=== PATIENT | female | born 1990 | race Caucasian/White ===

== ENCOUNTER 2024-02-13 02:39 | Inpatient (IN) | payer OTHER, SELFPAY ==
[2024-02-12 23:09] VITALS: BP 141/80
[2024-02-12 23:35] VITALS: BMI 38.5
--- NOTE | 2024-02-12 23:58 | ED.GENMED ---
History of Present Illness
General
Chief Complaint: Abdominal Pain
Source: patient
Exam Limitations: none
Time Seen by Provider: 02/12/24 23:34
Travel History
Have you had any contact with someone who has COVID-19?: No
Do you have any symptoms of coronavirus? Fever > 100 degrees, chills, cough, shortness of breath, sore throat, loss of taste or smell, muscle aches, or headache?: No
History of Present Illness
History of Present Illness:
This is a 34 year old female that comes in with c/o abd pain. State that before she had her gallbladder removed she would get abd spasm. States that recently she has had three episodes of upper abd spasm. States that this one tonight went on for 1
hour and its like she is having labor pain. States that there is a tightening. States that she thought she was going to pass out due to the pain. States that she does have an appointment with her GI specialist this week. States that the pain has
continued. States that she also feels SOB with the pain. States that she is nauseated and vomited. Denies any fever, chills, chest pain, diarrhea, headache dizziness, urinary burning.
Past History
Past History
ED Past Medical History: None; Negative Asthma, HTN, Hypercholesterolemia or NIDDM
ED Past Surgical History: Cholecystectomy and Other (Gastric sleeve)
Social History
Tobacco: Vaping (Former Cig smoker but now Vaps)
Alcohol: Occasional
Personal: Single
Living: alone
Review of Systems
Review of Systems
All Other Systems: ROS reviewed and negative except as documented in HPI and ROS
Constitutional: Reports no symptoms; Denies fever or chills
EENT: Reports no symptoms
Respiratory: Reports trouble breathing (with the pain); Denies cough
Cardiac: Reports no symptoms; Denies chest pain
ABD/GI: Reports abdominal pain, nausea and vomiting; Denies diarrhea
Musculoskeletal: Reports no symptoms
Skin: Reports no symptoms
Neurological: Reports no symptoms; Denies dizzy or headache
Psychiatric: Reports no symptoms
Phy Exam
General Physical Exam
General Presentation: mild distress
General age: appears stated age
General Skin: warm and dry
General Habitus: obese
General Mental: alert
General Hydration: appears well hydrated
ENT Exam
ENT Exam: TM's normal, pharynx normal and neck supple
Eye Exam
Eye Exam: EOMI
Cardiovascular Exam
Cardiovascular Exam: regular rate/rhythm, no edema, no murmur and normal peripheral pulses
Pulmonary Exam
Pulmonary Exam: lungs clear, no respiratory distress, no rales, chest non tender, no crackles, no rhonchi, no wheezing and no cough
Gastrointestinal Exam
Gastrointestinal Exam: normal bowel sounds, soft, no organomegaly, no pulsatile mass, non distended and tender (Epigastric tenderness with palpation)
Musculoskeletal Exam
Musculoskeletal Exam: full ROM and no edema
Skin Exam
Skin Exam: normal color, warm/dry, no rash and no petechia
Course
Orders/Labs/Results
Orders:
Orders
02/12/24 23:57
IV Insert/Care/Rem.- Treatment PRN
Complete Blood Count/With Diff Urgent
Comprehensive Metabolic Panel Urgent
Lipase Urgent
0.9% Sodium Chloride 1000 ml [Nss] 1,000 ml IV BOLUS
Ondansetron Injectable [Zofran] 4 mg IV NOW STA
02/13/24 00:00
CT Abd/Pel (IV only)-DH only Urgent
Reason For Exam: Upper abd pain and spasm.
02/13/24 00:19
HCG, Serum Qualitative Screen Urgent
Test Result ONCE
02/13/24 02:05
Lactic Acid Urgent
Abnormal Lab Results
02/13/24
00:19
WBC 17.3 H 10^3/uL
(4.8-10.8)
MCH 26.1 L pg
(27.0-31.0)
MCHC 31.7 L g/dL
(33.0-37.0)
MPV 12.3 H fL
(7.4-10.4)
Abs Immat Gran (auto) 0.3 H 10^3/uL
(0-0.05)
Absolute Neuts (auto) 13.9 H 10^3/uL
(1.4-6.5)
Absolute Monos (auto) 1.2 H 10^3/uL
(0.1-0.6)
Immature Gran % 1.7 H %
(0-0.5)
Neutrophils % 80.2 H %
(42.2-75.2)
Lymphocytes % 10.3 L %
(20.5-51.1)
Glucose 106 H mg/dl
(70-99)
AST 180 H U/L
(14-36)
ALT 77 H U/L
(0-35)
Lipase > 4000 H* U/L
(23-300)
02/13/24 00:19
02/13/24 00:19
Leukocytosis, Glucose nonfasting. AST/ALT elevation. Lipase >4000, HCG negative.
Vital Signs
Initial and Last Documented VS:
Initial Vital Signs
Temp Pulse Resp BP Pulse Ox
98.9 F 80 18 141/80 100
02/12/24 23:09 02/12/24 23:09 02/12/24 23:09 02/12/24 23:09 02/12/24 23:09
Last Documented Vital Signs
Temp Pulse Resp BP Pulse Ox
98.9 F 78 18 115/53 99
02/12/24 23:09 02/13/24 00:00 02/13/24 00:00 02/13/24 01:00 02/13/24 01:16
MDM/Problems Addressed
Differential Diagnosis Includes:
Gastroporesis, Stomach spasm
MDM/Problems Addressed:
This is a 34 year old female that comes in with c/o spasm in the upper abd. States that this happened before she had her gallbladder out and now it has started again and this is the third episode. States that the pain is so bad that she feels like
she is going to pass out. States that it is like contractions and a Tightening.
Will check labs and get CT scan
Back into see patient. Explained that she has Pancreatitis and that her Liver enzymes are elevated. Explained that she will be admitted and further testing will be done tomorrow. Hospitalist notified.
Chronic conditions affecting care: Previous abdomnial surgery
Acute Exacerbation and/or Progression of Chronic Illness: Previous abdomnial surgery
*Radiology
Radiology exam reviewed: radiology read reviewed (CT night hawk- NO acute intra-abdominal pathology. No signs of acute pancreatitis. Previous cholecystectomy. No significant ductal dilation. NO acute bowel findings. Normal appendix. Post sleeve
gastrectomy anatomy. No evidence for complication. 2,7cm probable right ovarian cyst. No appreciable free) and other (C cont- no appreciable free fluid. )
*Pulse Oximetry
Patient hypoxic: no
*EKG
Interpreted by ED Provider?: NA
Rate: EKG- N/A
*Critical Care Note
Total Time (30-74mins, 75-104mins- exclusive of procedures): Not Applicable
ED Attending Note
-
Portions of this chart may have been created with voice recognition software.� Occasional wrong word or��sound alike� substitutions may have occurred due to the inherent limitations of voice recognition software.
Discharge Plan
Departure
Patient Disposition: Admit
Date of Disposition: 02/13/24
Time of Disposition: 01:38
Admit to: Med/Surg
Presentation/result/management discussed w/ accepting MD/DO: Hospitalist
Patient with high blood pressure during this ER visit?: No
Condition: Good
Covid-19: Not Applicable
Discharge Problem:
Acute pancreatitis, Elevated liver enzymes
Prescriptions:
No Action
fluoxetine 40 mg Capsule
40 mg PO DAILY
alprazolam 1 mg Tablet
1 mg PO HS
Referrals:
PRIVATE,PHYSICIAN [Family Provider] -
Interventions
Interventions:
*Risk Screen - Suicide Last Done: 02/12/24 23:09
*General Assessment Last Done: 02/12/24 23:36
*Neglect/Abuse Screening Last Done: 02/12/24 23:09
ED- Fall Risk Assessment Last Done: 02/12/24 23:51
*ED COVID-19 Vaccine History Last Done: 02/12/24 23:36
ER-Szflbn-Ncjzolmfvg Assessment Last Done: 02/12/24 23:51
[2024-02-13] VITALS (9 sets, daily range): BP systolic 96–134; BP diastolic 48–77; BMI 41.1
[2024-02-13] MEDS: NSS 1000 IV ×4 (00:21→17:26)
[2024-02-13] MEDS: ZOFRAN 4 MG IV ×4 (00:23→21:35)
[2024-02-13 00:40] LABS: ALT (SGPT) 77 U/L (0-35); AST (SGOT) 180 U/L (14-36); Alkaline Phosphatase 117 U/L (38-126); Blood Urea Nitrogen 16 mg/dl (7-17); Calcium 9.5 mg/dl (8.4-10.2); Carbon Dioxide 27 mmol/L (22-30); Chloride 104 mmol/L (98-107); Estimated Creatinine Clearance 110 ml/min; Glucose 106 mg/dl (70-99); Potassium 5.1 mmol/L (3.5-5.1); Sodium 139 mmol/L (135-145); Total Bilirubin 0.6 mg/dl (0.2-1.3); Total Protein 7.1 g/dl (6.3-8.2); eGFR > 60.00
[2024-02-13 00:47] LABS: % Basophils 0.4 % (0-2); % Eosinophils 0.7 % (0-6); % Immature Granulocytes 1.7 % (0-0.5); % Lymphocytes 10.3 % (20.5-51.1); % Monocytes 6.7 % (1.7-9.3); % Neutrophils 80.2 % (42.2-75.2); Absolute Basophils 0.1 10^3/uL (0-0.2); Absolute Eosinophils 0.1 10^3/uL (0-0.7); Absolute Immature Granulocytes 0.3 10^3/uL (0-0.05); Absolute Lymphocytes 1.8 10^3/uL (1.2-3.4); Absolute Monocytes 1.2 10^3/uL (0.1-0.6); Absolute Neutrophils 13.9 10^3/uL (1.4-6.5); Hematocrit 40.4 % (37.0-47.0); Hemoglobin 12.8 g/dL (12.0-16.0); Mean Corp Hgb Conc. 31.7 g/dL (33.0-37.0); Mean Corpuscular Hgb 26.1 pg (27.0-31.0); Mean Corpuscular Volume 82.3 fL (81.0-99.0); Mean Platelet Volume 12.3 fL (7.4-10.4); Nucleated Red Blood Cells % 0 %; Platelet Count 285 10^3/uL (130-400); Red Blood Cell Count 4.91 10^6/uL (4.20-5.40); Red Cell Dist. Width 13.3 % (11.5-14.5); White Blood Cell Count 17.3 10^3/uL (4.8-10.8)
[2024-02-13 01:15] LABS: HCG, Serum Qualitative Screen Negative
[2024-02-13 01:21] LABS: Lipase > 4000 U/L (23-300)
--- NOTE | 2024-02-13 02:22 | HPS.HSE ---
Family Physician
-
Family Physician: PHYSICIAN PRIVATE
Chief Complaint
-
Abd Pain
History of Present Illness
Patient is a 34y F with PMH significant for morbid obesity who presents to ED complaining of abdominal pain. Patient reports a prior history of episodic epigastric pain. She was ultimately diagnosed with symptomatic cholelithiasis and underwent
cholecystectomy about one year ago at [facility]. She states that she has been doing very well since that time. About 2 weeks ago, she began to have recurrent episodes of similar pain. Patient reports 3 episodes in the past 2 weeks of sharp,
stabbing pain in the epigastric region with radiation straight to the back. No lower abdominal pain. Pos N/V this evening. No diarrhea. Patient reports increased heartburn symptoms as well. No new medications. No other recent changes,
illnesses, etc.
Patient had her most severe episode yet this evening accompanied by nausea and non-bloody, bilious emesis.
She presented to the ED for further evaluation.
Medical History
Past Medical History
Past Medical History: Reports Other
Additional Past Medical History:
Morbid Obesity
Anxiety / Depression
Past Surgical History: Reports Other
Additional Past Surgical History:
Gastric Sleeve (2004)
Cholecystectomy (2022)
Social History
Tobacco: Vaping (Occasional)
Alcohol: Occasional (Last alcohol was Tuesday evening.)
Drug: None
Family History
Family History: Other (Father: CKD s/p Renal Transplant)
Allergies / Home Medications
Allergies reflects when Allergies were last updated in [email or web address].
Home Medications with original date entered in [email or web address]
Allergy/Medication List:
Allergies
Allergy/AdvReac Type Severity Reaction Status Date / Time
No Known Allergies Allergy Verified 02/12/24 23:11
Home Medications
alprazolam 1 mg tablet 1 mg PO HS 02/12/24
fluoxetine 40 mg capsule 40 mg PO DAILY 02/12/24
Review of Systems
-
History Source: Patient
A 12 point ROS was completed and negative except as noted: Yes
Constitutional: Denies Fever, Fatigue or Chills
EENT: Denies Sore Throat
Respiratory: Denies Cough or Trouble Breathing
Cardiac: Denies Chest Pain or Palpitations
Abdomen/GI: Reports Abdominal Pain, Nausea and Vomiting; Denies Diarrhea, Constipated, Bloody Stools or Black Stools
: Denies Dysuria, Frequency or Flank Pain
Musculoskeletal: Reports Other (Back Pain)
Neurological: Denies Dizzy or Headache
Psych: Denies Depression or Anxiety
Physical Exam
Vital Signs
Vital Signs
Temp Pulse Resp BP Pulse Ox
98.9 F 78 18 115/53 99
02/12/24 23:09 02/13/24 00:00 02/13/24 00:00 02/13/24 01:00 02/13/24 01:16
Physical Exam
General: Other (34y F in no acute distress.)
HEENT: Moist mucous membranes and PERRLA
Respiratory: Clear; No Wheezes, Rales or Rhonchi
Cardiac: S1/S2 and Regular Rhythm; No Murmur
GI: Soft, Normal Bowel Sounds and Other (Tenderness in epigastric region and less so in the RUQ. No rebound / guarding. Pos BS.)
Musculoskeletal: No Clubbing, No Cyanosis and No Edema
Neuro: AO x 3
Laboratory Results
-
02/13/24 00:19
02/13/24 00:19
Laboratory Results
Total Bilirubin 0.6 mg/dl (0.2-1.3) 02/13/24 00:19
AST 180 U/L (14-36) H 02/13/24 00:19
ALT 77 U/L (0-35) H 02/13/24 00:19
Alkaline Phosphatase 117 U/L (38-126) 02/13/24 00:19
Lipase > 4000 U/L (23-300) H* 02/13/24 00:19
Impression/Plan
-
A/P: Patient is a 34y F with PMH significant for obesity and cholelithiasis who presents to ED complaining of abdominal pain with N/V.
Acute Pancreatitis
- Admit for further evaluation and treatment.
- Patient with epigastric abdominal pain and N/V this evening.
- Lipase > 4000.
- Imaging relatively unremarkable in the ED.
- No evidence for retained CBD stone by labs / imaging. Not significant alcohol use.
- Check AM lipids.
- NPO, IVFs, pain control / antiemetics, etc.
- GI evaluation in the AM for additional recommendations.
- Follow for clinical improvement.
Morbid Obesity
- Affects all aspects of care.
- s/p gastric sleeve procedure in 2004.
- Encouraged continued efforts at healthy diet and regular exercise with goal of weight loss.
DVT Prophylaxis: Lovenox
Code Status: Full
[2024-02-13 03:21] LABS: Lactic Acid 1.1 mmol/L (0.7-2.0)
--- NOTE | 2024-02-13 04:17 | PTCARENOTE ---
Received patient from ER, AAOx4. Patient ambulating with steady gait. C/o mid upper gastric discomfort. Oriented to unit, plan of care continues.
[2024-02-13] MEDS: DILAUDID 0.5 MG IV ×5 (04:41→21:34)
[2024-02-13 07:17] LABS: Hematocrit 38.4 % (37.0-47.0); Hemoglobin 12.1 g/dL (12.0-16.0); Mean Corp Hgb Conc. 31.5 g/dL (33.0-37.0); Mean Corpuscular Hgb 25.7 pg (27.0-31.0); Mean Corpuscular Volume 81.5 fL (81.0-99.0); Mean Platelet Volume 12.5 fL (7.4-10.4); Platelet Count 252 10^3/uL (130-400); Red Blood Cell Count 4.71 10^6/uL (4.20-5.40); Red Cell Dist. Width 13.4 % (11.5-14.5); White Blood Cell Count 10.1 10^3/uL (4.8-10.8)
[2024-02-13] MEDS: NSS (PRESERVATIVE FREE) 10 ML IV (07:56)
[2024-02-13] MEDS: PROZAC 40 MG PO (07:56)
[2024-02-13] MEDS: PROTONIX IV 40 MG IV (07:56)
[2024-02-13 07:59] LABS: ALT (SGPT) 165 U/L (0-35); AST (SGOT) 242 U/L (14-36); Albumin 3.5 g/dl (3.5-5.0); Alkaline Phosphatase 120 U/L (38-126); Blood Urea Nitrogen 13 mg/dl (7-17); Calcium 8.6 mg/dl (8.4-10.2); Carbon Dioxide 24 mmol/L (22-30); Chloride 109 mmol/L (98-107); Direct Bilirubin 0.1 mg/dl (0.0-0.4); Estimated Creatinine Clearance > 125 ml/min; Glucose 94 mg/dl (70-99); HDL Cholesterol 71 mg/dl; LDL Cholesterol, Calculated 95 mg/dl; Lipase 1717 U/L (23-300); Potassium 4.5 mmol/L (3.5-5.1); Sodium 136 mmol/L (135-145); Total Bilirubin 0.7 mg/dl (0.2-1.3); Total Cholesterol 186 mg/dl (50-199); Total Protein 6.4 g/dl (6.3-8.2); Triglyceride 100 mg/dl (10-149); Very Low Density Lipoprotein 20 mg/dl (0-30); eGFR > 60.00
[2024-02-13 08:13] LABS: TSH Reflex To Free T4 0.65 uIU/ml (0.47-4.68)
--- NOTE | 2024-02-13 10:13 | CON.GI ---
Addendum entered and electronically signed by Chai Elias MD 02/13/24 15:32:
I saw and examined the patient.
The FISH BAIT PROCESSING SUPERVISOR's note was reviewed and I agree with the note.
34-year-old female with past medical history of obesity status post gastric sleeve in October 2022 and history of D&C and CCY who presents to the emergency room with acute onsets of abdominal discomfort.� Patient states that on Tuesday evening she
developed acute onset of epigastric/right upper quadrant pain that she describes as an aching, that radiates through to her back.� She states that movement makes this worse.� Nothing makes it better.� It was associated with vomiting bilious fluid.�
She states that on Tuesday she had a lot of leftovers that included carbs and cheese.� She states on Tuesday she had to drinks that contain gin and thu.� 2 seltzers.� She also had similar complaints the weekend before after 's Day when
she had a few glasses of wine and an espresso martini.� She states that she has had these 'spasms/attacks'.� In the past.� She states that she was told she had gallstones in the past.� She denies any fevers, chills, melena, hematochezia, acholic
stools, bilirubinuria, no medications, tattoos, piercings, IV drug use or sick contacts. With patient presents with WBC of 17.3 currently down to 10.1, hemoglobin is 12.1, hematocrit is 38.4, platelet count 252, lactic acid 1.1, total bilirubin 0.7
with a direct 0.1, AST is 242 up from 180, ALT is 165 up from 77, alk phos is 120 up from 117.� Triglycerides are 100, lipase is 1717 down from greater than 4000.� Calcium is 8.6.
Impression:
Pancreatitis -abdominal pain/elevated lipase. CT abdomen/pelvis showing normal pancreas. etiology - biliary vs ETOH induced
Elevated LFTs
Prior history of cholecystectomy
plan
N.p.o.
Continue IV fluid
Check IgG4
MRCP for further evaluation of biliary tree
Trend LFT
Original Note:
Consultation
-
Date/Time Consultation Requested: 02/13/24330
Date/Time Consultation Performed: 02/13/24929
Requesting Provider: Dr. Ayala
Performing Provider: Dr. Elias/GARO Garcia
Reason for Consultation: abd pain
Medical History
Chief Complaint / HPI
Chief Complaint: abd pain
History of Present Illness:
34-year-old female with past medical history of obesity status post gastric sleeve in October 2022 and history of D&C presents to the emergency room with acute onsets of abdominal discomfort. Patient states that on Tuesday evening she developed
acute onset of epigastric/right upper quadrant pain that she describes as an aching, that radiates through to her back. She states that movement makes this worse. Nothing makes it better. It was associated with vomiting bilious fluid. She states
that on Tuesday she had a lot of leftovers that included carbs and cheese. She states on Tuesday she had to drinks that contain gin and thu. 2 seltzers. She also had similar complaints the weekend before after 's Day when she had a
few glasses of wine and an espresso martini. She states that she has had these 'spasms/attacks'. In the past. She states that she was told she had gallstones in the past. She denies any fevers, chills, melena, hematochezia, acholic stools,
bilirubinuria, no medications, tattoos, piercings, IV drug use or sick contacts.
Past Medical History
Past Medical History: Other (Obesity)
Past Surgical History: Cholecystectomy and Other (D&C, gastric sleeve October 2022)
Social History
Tobacco: Vaping
Alcohol: Occasional (Weekend drinking, drinks 4-5 alcoholic beverages at a time)
Drug: None
Family History
Family History: Other (No family history of gastrointestinal malignancy or inflammatory bowel disease)
Allergies / Home Medications
Allergy/AdvReac Type Severity Reaction Status Date / Time
No Known Allergies Allergy Verified 02/12/24 23:11
Medication Instructions Recorded
alprazolam 1 mg tablet 1 mg PO HS 02/12/24
fluoxetine 40 mg capsule 40 mg PO DAILY 02/12/24
Review of Systems
-
All other systems: A 12 pt ROS was Negative except as stated above in HPI
Vital Signs
Temp Pulse Resp BP Pulse Ox
98 F 59 18 96/59 96
02/13/24 07:00 02/13/24 07:00 02/13/24 07:00 02/13/24 07:00 02/13/24 08:10
Physical Exam
Exam
General: No Apparent Distress
HEENT: Normocephalic and Anicteric
Respiratory: Clear (Anterior)
Cardiac: Regular Rhythm
GI: Soft, Non Distended, Normal Bowel Sounds and Tender (Mild epigastric tenderness)
Skin: Warm and Dry
Neuro: AO x 3
Psych: Calm
Results
WBC 10.1 10^3/uL (4.8-10.8) 02/13/24 06:23
Hgb 12.1 g/dL (12.0-16.0) 02/13/24 06:23
Hct 38.4 % (37.0-47.0) 02/13/24 06:23
MCV 81.5 fL (81.0-99.0) 02/13/24 06:23
Plt Count 252 10^3/uL (130-400) 02/13/24 06:23
Absolute Neuts (auto) 13.9 10^3/uL (1.4-6.5) H 02/13/24 00:19
Sodium 136 mmol/L (135-145) 02/13/24 06:23
Potassium 4.5 mmol/L (3.5-5.1) 02/13/24 06:23
Chloride 109 mmol/L (98-107) H 02/13/24 06:23
Carbon Dioxide 24 mmol/L (22-30) 02/13/24 06:23
BUN 13 mg/dl (7-17) 02/13/24 06:23
Creatinine 0.8 mg/dL (0.6-1.0) 02/13/24 06:23
Calcium 8.6 mg/dl (8.4-10.2) 02/13/24 06:23
Total Bilirubin 0.7 mg/dl (0.2-1.3) 02/13/24 06:23
AST 242 U/L (14-36) H 02/13/24 06:23
ALT 165 U/L (0-35) H 02/13/24 06:23
Alkaline Phosphatase 120 U/L (38-126) 02/13/24 06:23
Lipase 1717 U/L (23-300) H* 02/13/24 06:23
Diagnostic Image Results:
CT of the abdomen and pelvis with IV contrast only:
IMPRESSION:
Prior cholecystectomy.
No pancreatic/peripancreatic inflammatory changes or biliary tract dilatation.
Prior gastric surgery.
Unremarkable appendix.
Approximate 2.7 cm right adnexal/ovarian cyst.
Study preliminarily interpreted by Dr. Lucas from [facility], report faxed to the emergency department at 0205 hours on February 13, 2024
Prior GI Procedures:
EGD: None
Colonoscopy: None
Assessment / Plan
-
34-year-old female with past medical history of obesity status post gastric sleeve in October 2022 and history of D&C and CCY who presents to the emergency room with acute onsets of abdominal discomfort. Patient states that on Tuesday evening she
developed acute onset of epigastric/right upper quadrant pain that she describes as an aching, that radiates through to her back. She states that movement makes this worse. Nothing makes it better. It was associated with vomiting bilious fluid.
She states that on Tuesday she had a lot of leftovers that included carbs and cheese. She states on Tuesday she had to drinks that contain gin and thu. 2 seltzers. She also had similar complaints the weekend before after Vinny's Day when
she had a few glasses of wine and an espresso martini. She states that she has had these 'spasms/attacks'. In the past. She states that she was told she had gallstones in the past. She denies any fevers, chills, melena, hematochezia, acholic
stools, bilirubinuria, no medications, tattoos, piercings, IV drug use or sick contacts. With patient presents with WBC of 17.3 currently down to 10.1, hemoglobin is 12.1, hematocrit is 38.4, platelet count 252, lactic acid 1.1, total bilirubin 0.7
with a direct 0.1, AST is 242 up from 180, ALT is 165 up from 77, alk phos is 120 up from 117. Triglycerides are 100, lipase is 1717 down from greater than 4000. Calcium is 8.6.
Impression:
Pancreatitis
Elevated LFTs
Plan:
-Trend LFTs as these continue to increase
-Check Hepatitis panel
-Await IgG4 subclasses
-Continue IVF
-Incentive spirometer
-OOB
-MRCP for completion patient feels this is a gallbladder spasm like feeling.
Data Reviewed
-
CT Scan: Report Reviewed by me and Discussed with Physician
-
-
Thank you for consultation and allowing me to participate in the patient's care. Please call the bloom conveyor operator GI physician during the after hours with any questions or concerns.
--- NOTE | 2024-02-13 12:18 | W.PN.HOSP.TC ---
Today's Communication/Plan
-
MRI
continue NPO/IVF
Assessment / Plan
Assessment / Plan
Assessment:
Acute Pancreatitis
Elevated LFTs
- Patient with epigastric abdominal pain and N/V this evening.
- Lipase > 4000, now repeat is 1717
- monitor LFTs
- No evidence for retained CBD stone by labs/imaging.� Not significant alcohol use.
- MRI abdomen: pending
- TG 100s
- NPO, IVFs, pain control/antiemetics, etc.
- GI following
Morbid Obesity
- Affects all aspects of care.
- s/p gastric sleeve procedure in 2004.
- Encouraged continued efforts at healthy diet and regular exercise with goal of weight loss.
DVT Prophylaxis:�Lovenox
Code Status:�Full
Anticipated Discharge: 24 - 48 hours
Subjective/Interval History
-
Date of Service: February 13, 2024
pain control improving
Objective Data
-
Labs:
Laboratory Results
02/13/24 02/13/24
00:19 06:23
WBC 17.3 H 10.1
Hgb 12.8 12.1
Hct 40.4 38.4
Plt Count 285 252
Sodium 139 136
Potassium 5.1 4.5
Chloride 104 109 H
Carbon Dioxide 27 24
BUN 16 13
Creatinine 0.9 0.8
Glucose 106 H 94
Calcium 9.5 8.6
Total Bilirubin 0.6 0.7
AST 180 H 242 H
ALT 77 H 165 H
Alkaline Phosphatase 117 120
Vital Signs:
Vital Signs
Temp Pulse Resp BP Pulse Ox
98 F 59 18 96/59 96
02/13/24 07:00 02/13/24 07:00 02/13/24 07:00 02/13/24 07:00 02/13/24 08:10
I&O
02/12/24 02/13/24 02/14/24
06:59 06:59 06:59
Intake Total 1000 / 1000
Balance 1000 / 1000
Physical Exam
-
General: No Apparent Distress and Obese
HEENT: Normocephalic and Atraumatic
Respiratory: Negative Wheezes or Rales
Cardiac: Regular Rhythm and S1/S2
GI: Soft and Nontender
Genito-urinary: No Costovertebral Tender
Musculoskeletal: No Edema
Neuro: AO x 3
Hematologic / Lymphatic: No Lymphadenopathy
Psych: Calm
Data Reviewed
-
Total Time Spent with Patient (in minutes): 42
Labs: Labs Reviewed by me
--- NOTE | 2024-02-13 16:42 | CM ---
Alert awake oriented patient who lives alone in an apartment with 20 steps to enter .She is independent in driving ,working and in all activities of daily living.Offered VN she declined.SHREE tenorio.
Never had VN/SNF
Pharmacy [facility] [address] [place]
PCP she has none . She said she will call her insurance and asked for ope PCP in area.
PLAN Home declined VN
[2024-02-13] MEDS: LOVENOX 40 MG SC (17:26)
[2024-02-13] MEDS: XANAX 1 MG PO (21:33)
[2024-02-14] MEDS: NSS 1000 IV ×4 (00:15→21:10)
[2024-02-14] MEDS: ZOFRAN 4 MG IV ×2 (05:28→13:31)
[2024-02-14] MEDS: DILAUDID 0.5 MG IV ×5 (05:29→22:16)
[2024-02-14 06:00] VITALS: BMI 41.8
[2024-02-14 06:57] LABS: Hematocrit 34.2 % (37.0-47.0); Hemoglobin 10.7 g/dL (12.0-16.0); Mean Corp Hgb Conc. 31.3 g/dL (33.0-37.0); Mean Platelet Volume 12.6 fL (7.4-10.4); Platelet Count 210 10^3/uL (130-400); Red Blood Cell Count 4.12 10^6/uL (4.20-5.40); Red Cell Dist. Width 13.6 % (11.5-14.5); White Blood Cell Count 7.1 10^3/uL (4.8-10.8)
[2024-02-14 07:17] LABS: ALT (SGPT) 111 U/L (0-35); AST (SGOT) 63 U/L (14-36); Albumin 3.2 g/dl (3.5-5.0); Alkaline Phosphatase 110 U/L (38-126); Blood Urea Nitrogen 9 mg/dl (7-17); Calcium 8.2 mg/dl (8.4-10.2); Carbon Dioxide 23 mmol/L (22-30); Chloride 106 mmol/L (98-107); Estimated Creatinine Clearance > 125 ml/min; Glucose 76 mg/dl (70-99); Potassium 4.1 mmol/L (3.5-5.1); Sodium 133 mmol/L (135-145); Total Bilirubin 0.6 mg/dl (0.2-1.3); Total Protein 5.8 g/dl (6.3-8.2); eGFR > 60.00
[2024-02-14 07:44] VITALS: BP 120/69
[2024-02-14 08:44] LABS: Lipase 77 U/L (23-300)
[2024-02-14] MEDS: PROTONIX IV 40 MG IV (08:48)
[2024-02-14] MEDS: PROZAC 40 MG PO (08:48)
[2024-02-14] MEDS: NSS (PRESERVATIVE FREE) 10 ML IV (08:49)
[2024-02-14] MEDS: TYLENOL 650 MG PO (10:48)
--- NOTE | 2024-02-14 11:17 | W.PN.GI.CBS2 ---
Addendum entered and electronically signed by Camilo Barton MD 02/14/24 14:13:
I saw and examined the patient.
The PA's note was reviewed and I agree with the note.
Comment:
Likely alcohol induced acute pancreatitis as pt is s/p cholecystectomy. LFT elevation but not in obstructive patter, CT on 02/12 showed no biliary dilation. Currently waiting for MRCP to r/o biliary etiology but I doubt this will be +ve. Will
begin CLD. Pending IgG4 and other serologies.
Original Note:
Today's Communication / Plan
-
Await MRI/MRCP. Trend LFTs. Alcohol abstinence advised
Assessment / Plan
-
The patient is a 34-year-old female with past medical history of obesity status post gastric sleeve in October 2022 and history of D&C and CCY who presents to the emergency room with acute onsets of abdominal discomfort. Patient states that on
Tuesday evening she developed acute onset of epigastric/right upper quadrant pain that she describes as an aching, that radiates through to her back. She states that movement makes this worse. Nothing makes it better. It was associated with
vomiting bilious fluid. She states that on Tuesday she had a lot of leftovers that included carbs and cheese. She states on Tuesday she had to drinks that contain gin and thu. 2 seltzers. She also had similar complaints the weekend before after
Saint [place]inny[place] Day when she had a few glasses of wine and an espresso martini. She states that she has had these 'spasms/attacks'. In the past. She states that she was told she had gallstones in the past. She denies any fevers, chills, melena,
hematochezia, acholic stools, bilirubinuria, no medications, tattoos, piercings, IV drug use or sick contacts. With patient presents with WBC of 17.3 currently down to 10.1, hemoglobin is 12.1, hematocrit is 38.4, platelet count 252, lactic acid
1.1, total bilirubin 0.7 with a direct 0.1, AST is 242 up from 180, ALT is 165 up from 77, alk phos is 120 up from 117. Triglycerides are 100, lipase is 1717 down from greater than 4000. Calcium is 8.6.
Problem list:
-Pancreatitis, first episode of unclear etiology possibly alcohol related
-Elevated LFTs, improving
Recommendations:
-Etiology of pancreatitis possibly secondary to alcohol use versus biliary etiology versus other
-Await MRI with MRCP for further evaluation to rule out biliary etiology, if positive would need ERCP
-Continue n.p.o.
-IgG4 is pending
-LFTs are improving, continue to trend
-Lipase is normal
-Hepatitis serologies pending
-IV fluids while n.p.o.
-Advised to avoid alcohol going forward
-Will follow
Subjective
Subjective
Date of Service: February 14, 2024
The patient was seen and examined at the bedside. She denies any further abdominal pain. She admits to some mild back pain which was thought to be residual referred pain. She does admit to some nausea but denies vomiting. She is awaiting MRI
this morning.
Objective
Data Reviewed
Laboratory Data:
Laboratory Results
02/14/24 06:18
02/14/24 06:18
Laboratory Results
Total Bilirubin 0.6 mg/dl (0.2-1.3) 02/14/24 06:18
AST 63 U/L (14-36) H 02/14/24 06:18
ALT 111 U/L (0-35) H 02/14/24 06:18
Alkaline Phosphatase 110 U/L (38-126) 02/14/24 06:18
Lipase 77 U/L (23-300) 02/14/24 06:18
Vital Signs and I&O:
Vital Signs
Temp Pulse Resp BP Pulse Ox
98.0 F 71 16 120/69 97
02/14/24 07:44 02/14/24 07:44 02/14/24 07:44 02/14/24 07:44 02/14/24 07:44
I&O
02/13/24 02/14/24 02/15/24
06:59 06:59 06:59
Intake Total 1000 / 1000
Balance 1000 / 1000
Physical Exam
Physical Exam
HEENT: Anicteric
Cardiology: S1 and S2 (Regular rate/rhythm)
Pulmonary: Clear
GI: Soft, Non Distended, Non Tender and Normal Bowel Sounds
Neuro: Non Focal
--- NOTE | 2024-02-14 13:56 | W.PN.HOSP.TC ---
Today's Communication/Plan
-
NPO/IVF pending MRI results
Assessment / Plan
Assessment / Plan
Assessment:
Acute Pancreatitis
Elevated LFTs
- Patient with epigastric abdominal pain and N/V this evening.
- Lipase > 4000, now repeat is 77
- monitor LFTs - improving
- No evidence for retained CBD stone by labs/imaging.� Not significant alcohol use.
- MRI abdomen: pending
- TG 100s
- NPO, IVFs, pain control/antiemetics, etc.
- GI following
Morbid Obesity
- Affects all aspects of care.
- s/p gastric sleeve procedure in 2004.
- Encouraged continued efforts at healthy diet and regular exercise with goal of weight loss.
DVT Prophylaxis:�Lovenox
Code Status:�Full
Anticipated Discharge: 24 - 48 hours
Subjective/Interval History
-
Date of Service: February 14, 2024
reports some epigastric pain, lipase/LFTs improving
awaiting MRI
Objective Data
-
Labs:
Laboratory Results
02/14/24
06:18
WBC 7.1
Hgb 10.7 L
Hct 34.2 L
Plt Count 210
Sodium 133 L
Potassium 4.1
Chloride 106
Carbon Dioxide 23
BUN 9
Creatinine 0.7
Glucose 76
Calcium 8.2 L
Total Bilirubin 0.6
AST 63 H
ALT 111 H
Alkaline Phosphatase 110
Vital Signs:
Vital Signs
Temp Pulse Resp BP Pulse Ox
98.0 F 71 16 120/69 97
02/14/24 07:44 02/14/24 07:44 02/14/24 07:44 02/14/24 07:44 02/14/24 08:00
I&O
02/13/24 02/14/24 02/15/24
06:59 06:59 06:59
Intake Total 1000 / 1000
Balance 1000 / 999
Physical Exam
-
General: Well Developed and Well Nourished
HEENT: Normocephalic and Atraumatic
Respiratory: Negative Wheezes or Rales
Cardiac: Regular Rhythm and S1/S2
GI: Soft
Genito-urinary: No Costovertebral Tender
Musculoskeletal: No Edema
Neuro: AO x 3
Hematologic / Lymphatic: No Lymphadenopathy
Psych: Calm
Data Reviewed
-
Total Time Spent with Patient (in minutes): 42
Labs: Labs Reviewed by me
[2024-02-14 15:34] VITALS: BP 117/67
[2024-02-14 16:02] LABS: Hepatitis B Surface Antigen Negative (Negative)
[2024-02-14 16:20] LABS: Hepatitis B Surface Antibody Positive; Hepatitis C Antibody Negative (Negative)
[2024-02-14 16:39] LABS: Hepatitis A Antibody, Total Negative (Negative)
[2024-02-14] MEDS: LOVENOX 40 MG SC (17:30)
[2024-02-14] MEDS: XANAX 1 MG PO (21:13)
[2024-02-14 23:42] VITALS: BP 117/70
[2024-02-15] MEDS: DILAUDID 0.5 MG IV ×2 (02:37→07:03)
--- NOTE | 2024-02-15 03:34 | DOWNTIME ---
There was a [employer] Client [employer] Specialist Downtime on 02/15/2024 from 0100 to 02/15/2024 at 0322. Downtime documentation of patient's care, including medication administrations, has been reconciled in the electronic record per guidelines. Refer to the
patient's paper chart under the miscellaneous tab to see printed paper medication records and downtime forms.
[2024-02-15 06:00] VITALS: BMI 41.1
[2024-02-15 06:17] LABS: Hematocrit 35.2 % (37.0-47.0); Hemoglobin 11.1 g/dL (12.0-16.0); Mean Corp Hgb Conc. 31.5 g/dL (33.0-37.0); Mean Corpuscular Hgb 25.7 pg (27.0-31.0); Mean Corpuscular Volume 81.5 fL (81.0-99.0); Mean Platelet Volume 12.5 fL (7.4-10.4); Platelet Count 224 10^3/uL (130-400); Red Blood Cell Count 4.32 10^6/uL (4.20-5.40); Red Cell Dist. Width 13.3 % (11.5-14.5); White Blood Cell Count 7.8 10^3/uL (4.8-10.8)
[2024-02-15 07:05] VITALS: BP 117/86
[2024-02-15 07:06] LABS: ALT (SGPT) 80 U/L (0-35); AST (SGOT) 32 U/L (14-36); Albumin 3.3 g/dl (3.5-5.0); Alkaline Phosphatase 111 U/L (38-126); Blood Urea Nitrogen 7 mg/dl (7-17); Calcium 8.7 mg/dl (8.4-10.2); Carbon Dioxide 26 mmol/L (22-30); Chloride 101 mmol/L (98-107); Estimated Creatinine Clearance > 125 ml/min; Glucose 74 mg/dl (70-99); Potassium 4.3 mmol/L (3.5-5.1); Sodium 136 mmol/L (135-145); Total Bilirubin 0.7 mg/dl (0.2-1.3); eGFR > 60.00
[2024-02-15] MEDS: PROZAC 40 MG PO (07:25)
[2024-02-15] MEDS: PROTONIX IV 40 MG IV (07:26)
[2024-02-15] MEDS: NSS (PRESERVATIVE FREE) 10 ML IV (07:26)
--- NOTE | 2024-02-15 09:05 | W.PN.GI.CBS2 ---
Addendum entered and electronically signed by Camilo Barton MD 02/15/24 09:21:
I saw and examined the patient.
The PA's note was reviewed and I agree with the note.
Comment:
MRI/MRCP images reviewed, report reviewed, no biliary abnormality. Denies pain, tolerated CLD yesterday. Solid diet today, if tolerates ok for d/c home from GI standpoint. Will s/o, pls call with questions.
Original Note:
Today's Communication / Plan
-
Advance diet to low fat. Repeat LFT's in 1 week with PCP. Follow-up outpatient as needed. No further GI recommendations. Call back with ? or concerns.
Assessment / Plan
-
The patient is a 34-year-old female with past medical history of obesity status post gastric sleeve in October 2022 and history of D&C and CCY who presents to the emergency room with acute onsets of abdominal discomfort. Patient states that on
Tuesday evening she developed acute onset of epigastric/right upper quadrant pain that she describes as an aching, that radiates through to her back. She states that movement makes this worse. Nothing makes it better. It was associated with
vomiting bilious fluid. She states that on Tuesday she had a lot of leftovers that included carbs and cheese. She states on Tuesday she had to drinks that contain gin and thu. 2 seltzers. She also had similar complaints the weekend before after
[place] Day when she had a few glasses of wine and an espresso martini. She states that she has had these 'spasms/attacks'. In the past. She states that she was told she had gallstones in the past. She denies any fevers, chills, melena,
hematochezia, acholic stools, bilirubinuria, no medications, tattoos, piercings, IV drug use or sick contacts. With patient presents with WBC of 17.3 currently down to 10.1, hemoglobin is 12.1, hematocrit is 38.4, platelet count 252, lactic acid
1.1, total bilirubin 0.7 with a direct 0.1, AST is 242 up from 180, ALT is 165 up from 77, alk phos is 120 up from 117. Triglycerides are 100, lipase is 1717 down from greater than 4000. Calcium is 8.6.
02/15/24 MRCP: IMPRESSION: 'History of previous cholecystectomy. No biliary ductal dilatation. No intraluminal filling defect. No significant peripancreatic stranding to suggest pancreatitis. No significant free fluid within the abdomen. Small
amount of pleural fluid bilaterally. Evidence of previous gastric sleeve. Hepatomegaly. Incomplete visualization of the pelvis, there is a nearly 3 cm lobulated right ovarian cyst and a small amount of free fluid in the pelvis incompletely imaged.'
Problem list:
-Pancreatitis, first episode of unclear etiology possibly alcohol related
-Elevated LFTs, improving
Recommendations:
-Etiology of pancreatitis possibly secondary to alcohol use idiopathic etiology other. No biliary etiology on MRCP.
-Advance diet as tolerated. Advised on low fat diet
-D/C IV fluids if tolerating diet
-Follow-up outpatient on IgG4 level. Advised her to call the office in 1 week for results.
-Reinforced alcohol abstinence going forward as we suspect this is the cause of her pancreatitis
-Advised her to limit use of narcotics, recommended Tylenol instead.
-If tolerating diet and able to minimize pain medication use, likely can be discharged from a GI standpoint
-Management of back pain per hospitalist
-Can follow-up with us as needed outpatient
-Repeat LFT's in 1 week with PCP
-No further GI recommendations, please call back with questions/concerns
Subjective
Subjective
Date of Service: February 15, 2024
The pt was seen and examined at the bedside. She denies any further GI symptoms. She has back pain that is managed with Diluadid. She is tolerating CLD. LFT's are nearly normal. MRCP did not show stones.
Objective
Data Reviewed
Laboratory Data:
Laboratory Results
02/15/24 04:55
02/15/24 04:55
Laboratory Results
Total Bilirubin 0.7 mg/dl (0.2-1.3) 02/15/24 04:55
AST 32 U/L (14-36) 02/15/24 04:55
ALT 80 U/L (0-35) H 02/15/24 04:55
Alkaline Phosphatase 111 U/L (38-126) 02/15/24 04:55
Lipase 77 U/L (23-300) 02/14/24 06:18
Vital Signs and I&O:
Vital Signs
Temp Pulse Resp BP Pulse Ox
98.5 F 72 18 117/86 98
02/15/24 07:05 02/15/24 07:05 02/15/24 07:05 02/15/24 07:05 02/15/24 07:05
I&O
02/14/24 02/15/24 02/16/24
06:59 06:59 06:59
Intake Total 960 / 960
Balance 960 / 960
Physical Exam
Physical Exam
HEENT: Anicteric
GI: Soft, Non Distended, Non Tender and Other (obese abdomen)
Neuro: Non Focal
--- NOTE | 2024-02-15 10:28 | W.PN.HOSP.TC ---
Today's Communication/Plan
-
dc home
Assessment / Plan
Assessment / Plan
Assessment:
Acute Pancreatitis
Elevated LFTs
- Patient with epigastric abdominal pain and N/V this evening.
- Lipase > 4000, now repeat is 77
- monitor LFTs - improving
- No evidence for retained CBD stone by labs/imaging.� Not significant alcohol use.
- MRI abdomen: negative
- TG 100s
- at DC, LFD and ETOH abstinence
Morbid Obesity
- Affects all aspects of care.
- s/p gastric sleeve procedure in 2004.
- Encouraged continued efforts at healthy diet and regular exercise with goal of weight loss.
- OP Bariatrics follow up
DVT Prophylaxis:�Lovenox
Code Status:�Full
More than 30 minutes spent in discharge including
Final examination of the patient
Summarizing hospital stay
Instructions for continuing care to all relevant caregivers
Preparation of discharge records, prescriptions, and referral forms
Total time spent (in minutes): 42
Anticipated Discharge: Today
Subjective/Interval History
-
Date of Service: February 15, 2024
tolerating diet
reports some bloating
Objective Data
-
Labs:
Laboratory Results
02/15/24
04:55
WBC 7.8
Hgb 11.1 L
Hct 35.2 L
Plt Count 224
Sodium 136
Potassium 4.3
Chloride 101
Carbon Dioxide 26
BUN 7
Creatinine 0.8
Glucose 74
Calcium 8.7
Total Bilirubin 0.7
AST 32
ALT 80 H
Alkaline Phosphatase 111
Vital Signs:
Vital Signs
Temp Pulse Resp BP Pulse Ox
98.5 F 72 18 117/86 98
02/15/24 07:05 02/15/24 07:05 02/15/24 07:05 02/15/24 07:05 02/15/24 08:00
I&O
02/14/24 02/15/24 02/16/24
06:59 06:59 06:59
Intake Total 960 / 960
Balance 960 / 960
Physical Exam
-
General: No Apparent Distress
HEENT: Normocephalic and Atraumatic
Respiratory: Negative Wheezes or Rales
Cardiac: Regular Rhythm and S1/S2
GI: Soft
Genito-urinary: No Costovertebral Tender
Musculoskeletal: No Edema
Neuro: AO x 3
Psych: Calm
Data Reviewed
-
Total Time Spent with Patient (in minutes): 42
Labs: Labs Reviewed by me
--- NOTE | 2024-02-15 10:39 | W.DS.TRANS ---
DC Summary - Bronzer
-
Discharge Instructions:
Discharge Diagnosis/Procedures Alcohol induced pancreatitis
Diet Low Fat
Activity As tolerated
Bathing Restrictions None
Instructions:
Stand-Alone Forms:
Changes to Home Medications: No
Discharge Medications:
DC Medications w/original date entered in [employer]
alprazolam 1 mg tablet 1 mg PO HS Mental Health/Anxiety 02/12/24
fluoxetine 40 mg capsule 40 mg PO DAILY Mental Health/Anxiety 02/12/24
alprazolam 1 mg tablet 1 mg PO BIDPRN PRN anxiety 02/14/24
hyoscyamine sulfate 0.125 mg sublingual tablet (Levsin/SL) 0.125 mg sublingual QID PRN cramps #20 tabs 02/15/24
Home Medication Changes
Pending Results: No
Total time spent discharging patient (in min): 42
--- NOTE | 2024-02-15 10:45 | CM ---
MD entered order for discharge .
She said she was ready fr dc.
She aid her dad Ellis will drive her home.
Offered VN she declined need.
PLAN Home no needs
[2024-02-15 11:00] VITALS: BP 132/82
[2024-02-16 03:07] LABS: IgG Subclass 4 44 mg/dL (1-123)
== END 2024-02-15 12:33 | disposition home or self-care (01) | DRG 439 ==
LOC: 4 EAST ACU 02:39
PROVIDERS: Clinical Nurse Specialist Family Health; Nurse Practitioner; ADMITTING PHYSICIAN Hospitalist; ATTENDING PHYSICIAN Internal Medicine; CONSULT PHYSICIAN Internal Medicine Gastroenterology; EMERGENCY PHYSICIAN Emergency Medicine
DX: K85.20 Alcohol induced acute pancreatitis without necrosis or infection (principal); Z68.41 Body mass index [BMI] 40.0-44.9, adult; F10.10 Alcohol abuse, uncomplicated; E66.01 Morbid (severe) obesity due to excess calories; R79.89 Other specified abnormal findings of blood chemistry; Z98.84 Bariatric surgery status
CPT/HCPCS: 74177; 74181; 80053; 80061; 82248; 82787; 83605; 83690; 84443; 84703; 85025; 85027; 86706; 86708; 86803; 87340; 96374; 99285; Q9967

== ENCOUNTER 2025-01-22 22:18 | Inpatient (IN) | payer OTHER, SELFPAY ==
[2025-01-22 13:44] VITALS: BP 131/79
[2025-01-22 14:13] LABS: % Basophils 0.5 % (0-2); % Eosinophils 9.9 % (0-6); % Immature Granulocytes 0.4 % (0-0.5); % Lymphocytes 15.2 % (20.5-51.1); % Monocytes 6.1 % (1.7-9.3); % Neutrophils 67.9 % (42.2-75.2); Absolute Basophils 0.1 10^3/uL (0-0.2); Absolute Eosinophils 1.2 10^3/uL (0-0.7); Absolute Immature Granulocytes 0.1 10^3/uL (0-0.05); Absolute Lymphocytes 1.8 10^3/uL (1.2-3.4); Absolute Monocytes 0.7 10^3/uL (0.1-0.6); Absolute Neutrophils 7.9 10^3/uL (1.4-6.5); Hematocrit 39.8 % (37.0-47.0); Hemoglobin 12.6 g/dL (12.0-16.0); Mean Corp Hgb Conc. 31.7 g/dL (33.0-37.0); Mean Corpuscular Hgb 25.4 pg (27.0-31.0); Mean Corpuscular Volume 80.1 fL (81.0-99.0); Mean Platelet Volume 11.8 fL (7.4-10.4); Nucleated Red Blood Cells % 0 %; Platelet Count 249 10^3/uL (130-400); Red Blood Cell Count 4.97 10^6/uL (4.20-5.40); Red Cell Dist. Width 21.1 % (11.5-14.5); White Blood Cell Count 11.6 10^3/uL (4.8-10.8)
[2025-01-22 14:24] LABS: HCG, Serum Qualitative Screen Negative
[2025-01-22 15:07] LABS: ALT (SGPT) 42 U/L (0-35); AST (SGOT) 76 U/L (14-36); Albumin 3.8 g/dl (3.5-5.0); Alkaline Phosphatase 84 U/L (38-126); Blood Urea Nitrogen 10 mg/dl (7-17); Calcium 8.9 mg/dl (8.4-10.2); Carbon Dioxide 24 mmol/L (22-30); Chloride 108 mmol/L (98-107); Glucose 98 mg/dl (70-99); Potassium 4.3 mmol/L (3.5-5.1); Sodium 138 mmol/L (135-145); Total Bilirubin 0.6 mg/dl (0.2-1.3); Total Protein 6.5 g/dl (6.3-8.2); eGFR > 60.00
[2025-01-22 15:36] LABS: Lipase > 4000 U/L (23-300)
--- NOTE | 2025-01-22 16:03 | ED.GENMED ---
History of Present Illness
General
Chief Complaint: Abdominal Pain
Source: patient
Exam Limitations: none
Time Seen by Provider: 01/22/25 15:37
Nursing documentation reviewed up to this point in time: agreed with
History of Present Illness
History of Present Illness:
Patient is a 34-year-old female with history of alcohol induced pancreatitis presenting to the emergency department for evaluation of abdominal pain associated with nausea and vomiting. Patient states that she feels intermittent upper abdominal
'spasms 'which generally come and go. However�this morning around 11 AM spasm occurred and was much more intense. This abdominal pain was associated with nausea, vomiting, and lightheadedness.
Patient denies any associated diarrhea, constipation, fever, chills. No chest pain or shortness of breath
Patient reports history of very similar symptoms just around this time last year when she was admitted to the hospital with alcohol induced pancreatitis. Patient reports she typically does not drink alcohol they did have a few drinks this past
weekend as it was her birthday.
Patient has had past abdominal surgeries including a sleeve gastrectomy and cholecystectomy.
Past History
Past History
ED Past Medical History: None; Negative Asthma, HTN, Hypercholesterolemia or NIDDM
ED Past Surgical History: Cholecystectomy and Other (Gastric sleeve)
Social History
Tobacco: Vaping (Former Cig smoker but now Vaps)
Alcohol: Occasional
Personal: Single
Living: alone
Review of Systems
Review of Systems
Allergies reviewed?: Yes
All Other Systems: ROS reviewed and negative except as documented in HPI and ROS
Phy Exam
Physical Exam
Physical Exam:
Vitals: Patient's vital signs are stable. Afebrile
General: Patient is well appearing, no acute distress. Nontoxic appearing
Skin: Warm and dry, no rashes or lesions
Head: Normocephalic, atraumatic
Eyes: Sclera nonicteric. EOMs intact. No nystagmus.
Throat: Protecting airway
Neck: Normal ROM, no cervical spine tenderness, no meningismus
Cardiac: Regular rate and rhythm, no murmurs.
Pulm: Normal respiratory effort, no wheezes, rales, rhonchi heard on exam.
Abdomen: Abdomen soft. Mild upper abdominal tenderness in epigastric region without rebound tenderness or guarding.
Extremities: No evidence of cyanosis or edema. Palpable distal pulses
Neuro: AAOx3. Grossly intact.
Psychiatric: Normal affect.
Course
Orders/Labs/Results
Orders:
Orders
01/22/25 13:45
Test Result ONCE
01/22/25 13:52
Complete Blood Count/With Diff Urgent
Comprehensive Metabolic Panel Urgent
HCG, Serum Qualitative Screen Urgent
Lipase Urgent
01/22/25 16:04
Electrocardiogram (*1) Urgent
Reason for Study: Abdominal Pain
EKG- Treatment ONCE
Iohexol [Omnipaque] See Protocol PO NOW STA
Ketorolac [Toradol] 15 mg IV NOW STA
Ondansetron Injectable [Zofran] 4 mg IV NOW STA
01/22/25 16:05
Lactated Ringers [Lr] 1,000 ml IV BOLUS
01/22/25 16:07
CT Abd/pel W Iv And Oral Contr Urgent
Comment: hx sleeve gastrectomy
Reason For Exam: abdominal pain, N/V, elevated lipase
01/22/25 16:58
HYDROmorphone [Dilaudid] 0.5 mg IV NOW STA
01/22/25 19:47
HYDROmorphone [Dilaudid] 0.5 mg IV NOW STA
Lactated Ringers [Lr] 500 ml IV BOLUS
01/22/25 20:04
Ondansetron Injectable [Zofran] 4 mg .ROUTE .STK-MED ONE
Ondansetron Injectable [Zofran] 4 mg IV NOW STA
01/22/25 21:18
Alcohol Urgent
B-Hydroxybutyrate Urgent
Comment: ADD ON
Magnesium Urgent
Comment: ADD ON
Phosphorus Urgent
Comment: ADD ON
01/22/25 21:29
Admit/Transfer Patient As Directed
Co-Sign Provider:
Level of Care: Inpatient admission
Assign to:: Medical/Surgical
Physician / Group: lisa perez
Diagnosis: Acute alcoholic pancreatitis
Reason for Hospitalization: Acute alcoholic pancreatitis
Expected length of stay greater than two midnights?: Yes
ELOS- Estimated Length of Stay in days: 3
I certify the patient meets the requirements for IP care: Yes
01/22/25 21:31
PRN Pain Medication Management As Directed
May give lesser potent ordered pain med per pt: Yes
preference::
Protocol:: Medication orders for pain may be administered in a
manner that supports deferring to patient preference
when the pt is:
- Requesting an ordered lesser potent pain medication.
Least to most potent pain medications are defined
as: acetaminophen < NSAID < tramadol < opioids
(morphine, oxycodone, hydromorphone).
- Requesting a lesser dose of the same medication IF
ORDERED.
- Requesting a less intrusive route of administration
if both routes are prescribed by the provider (PO <
IV).
01/22/25 22:25
Alprazolam [Xanax] 1 mg PO DAILYPRN PRN
Dicyclomine [Bentyl] 20 mg PO TIDPRN PRN
Polyethylene Glycol Powder [Miralax] 17 grams PO DAILYPRN PRN
01/22/25 22:25
DX Deep Vein Thrombosis Video Routine
01/22/25 23:00
Flush (0.9% Sodium Chloride) [Flush (Nss)] See Dose Instructions IV PER PROTOCOL
01/22/25 23:17
PT/INR [Prothrombin Time] Urgent
PTT Urgent
Urinalysis Reflex To Culture Routine
Date Specimen was Collected: 01/22/25
Time Specimen was Collected: 23:06
Urine Drug Abuse Screen Routine
Date Specimen was Collected: 01/22/25
Time Specimen was Collected: 23:06
01/23/25 06:00
B12 [Vitamin B12] IN AM
Folate IN AM
GGTP IN AM
Triglycerides IN AM
01/23/25 08:00
Alprazolam [Xanax] 1 mg PO BID
Cyanocobalamin [Vitamin B-12] 1,000 mcg PO DAILY
Fluoxetine HCl [Prozac] 10 mg PO DAILY
Fluoxetine HCl [Prozac] 40 mg PO DAILY
Ursodiol [Haris] 1,000 mg PO DAILY
01/23/25 18:00
Enoxaparin Sodium [Lovenox] 40 mg SC QPM
01/23/25 22:00
Ursodiol [Haris] 500 mg PO HS
Abnormal Lab Results
01/22/25 01/22/25
13:52 21:18
WBC 11.6 H 10^3/uL
(4.8-10.8)
MCV 80.1 L fL
(81.0-99.0)
MCH 25.4 L pg
(27.0-31.0)
MCHC 31.7 L g/dL
(33.0-37.0)
RDW 21.1 H %
(11.5-14.5)
MPV 11.8 H fL
(7.4-10.4)
Abs Immat Gran (auto) 0.1 H 10^3/uL
(0-0.05)
Absolute Neuts (auto) 7.9 H 10^3/uL
(1.4-6.5)
Absolute Monos (auto) 0.7 H 10^3/uL
(0.1-0.6)
Absolute Eos (auto) 1.2 H 10^3/uL
(0-0.7)
Lymphocytes % 15.2 L %
(20.5-51.1)
Eosinophils % 9.9 H %
(0-6)
Chloride 108 H mmol/L
(98-107)
Phosphorus 2.4 L mg/dl
(2.5-4.5)
AST 76 H U/L
(14-36)
ALT 42 H U/L
(0-35)
Lipase > 4000 H* U/L
(23-300)
01/22/25 13:52
01/22/25 13:52
Vital Signs
Initial and Last Documented VS:
Initial Vital Signs
Temp Pulse Resp BP Pulse Ox
98 F 83 16 131/79 98
01/22/25 13:44 01/22/25 13:44 01/22/25 13:44 01/22/25 13:44 01/22/25 13:44
Last Documented Vital Signs
Temp Pulse Resp BP Pulse Ox
98.2 F 64 20 110/62 97
01/22/25 22:33 01/22/25 22:33 01/22/25 22:33 01/22/25 22:33 01/22/25 22:33
MDM/Problems Addressed
Differential Diagnosis Includes:
Not limited to: Pancreatitis, acid reflux, choledocholithiasis, gastritis, etc.
MDM/Problems Addressed:
35-year-old female with intermittent upper abdominal pain acutely worse today and associated with vomiting. No fever, chest pain, shortness of breath. Vital stable on arrival. Physical exam as above. Abdomen soft with mild upper abdominal
tenderness without rebound tenderness or guarding. Cardio/pulmonary assessment unremarkable. Labs were initiated in triage. CBC with leukocytosis of 11.6. Chemistry with mild elevation in AST/ALT and lipase of >4000. Workup consistent with
acute pancreatitis. Given history of sleeve gastrectomy�will obtain CT scan to rule out other underlying complications. Will give pain control, IV lactated Ringer's. Patient will require admission.
Update: CT scan without acute abnormalities. Suspect acute pancreatitis, likely EtOH induced from drinking this past weekend. Will admit to hospitalist for further management/evaluation. Patient accepted to hospital service in stable condition.
Case was discussed with attending physician.
Chronic conditions affecting care:
Alcohol induced pancreatitis
Acute Exacerbation and/or Progression of Chronic Illness:
Acute pancreatitis
*Radiology
Radiology exam reviewed: radiology read reviewed
*Pulse Oximetry
Patient hypoxic: no
*EKG
Interpreted by ED Provider?: Yes
EKG Intrepretation Date: 01/22/25
Interpretation: abnormal
Comparison EKG: no comparison EKG present
Heart Rate: 61
Rate: normal
Rhythm: sinus
Darrow: normal axis
Interval: normal interval
QRS Pattern: normal QRS
Ischemia: no ischemia
*Protection Manager Interpretation
Rate: Protection Manager- N/A
*Critical Care Note
Total Time (30-74mins, 75-104mins- exclusive of procedures): Not Applicable
Data Reviewed
Review of Other/Old Records Reveals: Discharge Summary (Discharge summary from 02/15/2024-discharged with acute alcoholic pancreatitis)
Patient Management
Discussion with other providers: Hospitalist
Escalation/DeEscalation of care consider admission/obs:
Admit indicated
ED Attending Note
-
Portions of this chart may have been created with voice recognition software.� Occasional wrong word or��sound alike� substitutions may have occurred due to the inherent limitations of voice recognition software.
Discharge Plan
Departure
Patient Disposition: Admit
Date of Disposition: 01/22/25
Time of Disposition: 20:04
Presentation/result/management discussed w/ accepting MD/DO: Hospitalist
Discharge Problem:
Acute pancreatitis
Interventions
Interventions:
*Risk Screen - Suicide Last Done: 01/22/25 13:45
*Neglect/Abuse Screening Last Done: 01/22/25 13:45
*ED COVID-19 Vaccine History Last Done: 01/22/25 22:45
*Nursing Disposition Last Done: 01/22/25 22:23
CQ-Hprmpt-Jrdoiehtnh Assessment Last Done: 01/22/25 15:57
Discharge Date and Time
Discharge Date/Time: 01/22/25 22:23
[2025-01-22] MEDS: OMNIPAQUE 50 ML PO (16:23)
[2025-01-22] MEDS: ZOFRAN 4 MG IV ×3 (16:24→23:26)
[2025-01-22] MEDS: TORADOL 15 MG IV (16:24)
[2025-01-22] MEDS: LR 1000 IV (16:26)
[2025-01-22 17:02] VITALS: BMI 43.8
[2025-01-22] MEDS: DILAUDID 0.5 MG IV ×2 (17:14→20:07)
[2025-01-22] MEDS: LR 500 IV (20:07)
--- NOTE | 2025-01-22 20:48 | HPS.HSE ---
Family Physician
-
Family Physician: GARO Lao
Chief Complaint
-
Abdominal pain, nausea, vomiting
History of Present Illness
34-year-old female history of alcohol induced pancreatitis presenting to the ER today complaining of abdominal pain, nausea and vomiting that come and go and spasm-like however at 11 AM the pain became much more intense to where she became dizzy
nauseous and vomited. She denies fever, chills, diarrhea, constipation, chest pain, palpitations, cough, shortness of breath, rash. She reports similar symptoms last year when she was admitted with alcohol induced pancreatitis. She reports she
typically drinks every other weekend. 2 days ago was her birthday so she went out and drank 1 espresso martini, 1 Leeche with vodka and 6 ounces of white wine ending consumption at 2 AM on 01/21/2025. She does note she feels sick when she drinks
small amount other past medical history includes class III obesity status post sleeve gastrectomy, anxiety, depression, nicotine abuse via vaping, cholecystectomy.
Medical History
Past Medical History
Past Medical History: Reports Other
Additional Past Medical History:
class III obesity- status post sleeve gastrectomy
anxiety/ depression
nicotine abuse via vaping
cholecystectomy.
Past Surgical History: Reports Other
Additional Past Surgical History:
status post sleeve gastrectomy
Hiatal hernia repair October 2023
Cholecystectomy
Social History
Tobacco: Other (Former cigarette smoker 1 pack a week for 8 years)
Alcohol: Occasional (Drinks every other weekend 2 mixed drinks 1 glass wine)
Drug: None
Personal:
Living: With Family
Employment: Employed
Family History
Family History: Not pertinent
Allergies / Home Medications
Allergies reflects when Allergies were last updated in [employer].
Home Medications with original date entered in [employer]
Allergy/Medication List:
Allergies
Allergy/AdvReac Type Severity Reaction Status Date / Time
No Known Allergies Allergy Verified 02/12/24 23:11
Home Medications
alprazolam 1 mg tablet 1 mg PO DAILYPRN PRN anxiety 02/12/24
fluoxetine 40 mg capsule 40 mg PO DAILY Mental Health/Anxiety 02/12/24
alprazolam 1 mg tablet 1 mg PO BID 02/14/24
cyanocobalamin (vitamin B-12) 1,000 mcg tablet 1,000 mcg PO DAILY 01/22/25
dicyclomine 20 mg tablet 20 mg PO TIDPRN PRN abd cramping 01/22/25
fluoxetine 10 mg capsule 10 mg PO DAILY 01/22/25
ondansetron HCl 4 mg tablet 4 mg PO Q8HPRN PRN nausea 01/22/25
polyethylene glycol 3350 17 gram oral powder packet (Miralax) 17 g PO DAILYPRN PRN constipation 01/22/25
ursodiol 500 mg tablet 1,000 mg PO DAILY 01/22/25
ursodiol 500 mg tablet 500 mg PO HS 01/22/25
Review of Systems
-
History Source: Patient
A 12 point ROS was completed and negative except as noted: Yes
Constitutional: Denies Fever or Chills
EENT: Denies Sore Throat or Runny Nose
Respiratory: Denies Cough or Trouble Breathing
Cardiac: Denies Chest Pain or Palpitations
Abdomen/GI: Reports Abdominal Pain (Midepigastric to left upper quadrant), Nausea and Vomiting; Denies Diarrhea, Constipated, Bloody Stools or Black Stools
: Denies Dysuria, Frequency, Flank Pain, Incontinence, Difficulty Voiding or Urgency
Musculoskeletal: Denies Joint Pain or Edema
Skin: Denies Itching or Rash
Neurological: Denies Dizzy, Headache or Weakness
Endocrine: Reports No Symptoms
Hematologic/Lymphatic: Reports No Symptoms
Psych: Reports Calm
Physical Exam
Vital Signs
Vital Signs
Temp Pulse Resp BP Pulse Ox
98 F 83 16 131/79 98
01/22/25 13:44 01/22/25 13:44 01/22/25 13:44 01/22/25 13:44 01/22/25 13:44
Physical Exam
General: Chills and Morbidly Obese; No Fever
HEENT: NormoCephalic, Anicteric, Moist mucous membranes, PERRLA, Fouke Conjunctivae and No Ptosis
Respiratory: Clear; No Wheezes, Rales or Rhonchi
Cardiac: S1/S2 and Regular Rhythm; No Murmur, Rub, Gallop or Peripheral Edema
Breast: Deferred by me
GI: Soft, Non Distended, Tender (Midepigastric to left upper quadrant) and No Hepatosplenomegaly
Genito-urinary: Deferred by me
Musculoskeletal: No Clubbing, No Cyanosis and No Edema
Skin: Warm and Dry; No Rash
Neuro: AO x 3, No Motor Deficits, Nonfocal/grossly intact, Cranial Nerves Intact and No Sensory Deficits; No Slurred Speech, Facial Droop, Tremors or Sedated
Psych: Calm
Laboratory Results
-
01/22/25 13:52
01/22/25 13:52
Laboratory Results
Total Bilirubin 0.6 mg/dl (0.2-1.3) 01/22/25 13:52
AST 76 U/L (14-36) H 01/22/25 13:52
ALT 42 U/L (0-35) H 01/22/25 13:52
Alkaline Phosphatase 84 U/L (38-126) 01/22/25 13:52
Lipase > 4000 U/L (23-300) H* 01/22/25 13:52
Data Reviewed
-
CT Scan: Report Reviewed by me
Lab Data: Labs Reviewed by me
Impression/Plan
-
Impression/plan:
Admit to [facility]
#Acute alcoholic pancreatitis with history of alcoholic pancreatitis
Last alcoholic drink 01/21/2025 at 0200 patient drink Sapna ogden with vodka and 6 ounces of white wine
-Lipase greater than 4000 WBC 11.6 with no shift, afebrile
-Patient counseled that she cannot drink any alcohol ever as this is the second time she has developed pancreatitis, she does report she feels somewhat sick when she has sips of alcohol
-N.p.o.
-IV NSS 200 cc/h
-Will check EtOH level
-IV Zofran
-IV Protonix
-IV Dilaudid
-Consult GI
-Follow CBC, CMP, lipase
CT abdomen pelvis with IV and oral contrast:
1. Status post cholecystectomy with no evidence for biliary ductal dilation.
2. The pancreas appears within normal limits by CT in this patient with an elevated lipase value.
3. Hepatomegaly.
4. The appendix appears normal. No evidence for bowel obstruction or free intraperitoneal air.
5. Evidence of previous gastric sleeve surgery..
#Alcohol use
Patient drinks 3 drinks every other weekend,Last alcoholic drink 01/21/2025 at 0200 patient drink Sapna ogden with vodka and 6 ounces of white wine
-Will check alcohol level now
-Patient counseled that she cannot drink any alcohol ever as this is the second time she has developed pancreatitis, she does report she feels somewhat sick when she has sips of alcohol
Check B12, folate, GGT, PTT, INR mag, Phos, UDS, B hydroxybutyrate, GGTP, UA CONCRETE BLOCK [place]
-Patient is on scheduled Xanax 1 mg twice daily will hold Ativan protocol do not suspect risk for seizure
#Anxiety
-Continue alprazolam 1 mg p.o. twice daily
-Alprazolam 1 mg p.o. daily as needed
-Continue fluoxetine 50 mg daily
# Class III obesity- status post sleeve gastrectomy October 2023
Affects all aspects of care weight loss recommended
#Hiatal hernia repair October 2023
#Nicotine abuse via vaping
-Cessation advised
#Status postcholecystectomy
-Continue ursodiol 1000 mg daily and 500 mg p.o. at bedtime concern for small gallstone formation started medication 1 week ago by GI doctor at [facility]
-Continue dicyclomine 20 mg p.o. 3 times daily abdominal cramping
DVT prophylaxis
Subcu Lovenox
Full code
--- NOTE | 2025-01-22 20:59 | W.PN.UPDATE ---
Update Note
Progress Note Update
Patient seen in conjunction with GARO. I agree the findings on history and physical. I concur with assessment and plan unless stated otherwise.
Is a 35-year-old female with past medical history significant for hypertension, ahi-fpauwfk-rdppuofsk diabetes, anxiety, alcohol binging, history of prior alcoholic pancreatitis presenting to the emergency department with epigastric abdominal pain
nausea and abdominal spasms. No diarrhea. Denies any fevers or chills. She is status post gastric sleeve surgery as well as status post cholecystectomy. Reports increased etoh intake over the weekend. Then this a.m. started with epigastric pain
radiating to the back and associated with nausea but no vomiting.
In the emergency department she was afebrile, blood pressure 131/79 with a pulse of 89 and satting 98% on room air. CBC was unremarkable. Electrolytes BUN/creatinine were also normal. Lipase was elevated at 4000, mild elevation in AST and ALT to
76 and 42.
He had a CT of the abdomen pelvis shows no acute intra-abdominal process. Pancreas without any necrosis, peripancreatic fluid or pancreatic cyst. 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
Assessment and plan, suspect alcoholic pancreatitis secondary to recent binge drinking. Currently shows no signs of alcohol withdrawal.
- admit to med/surg
- npo with sips/ice and oral meds
- IV fluids, antiemetics and pain control
- adat ini am
- check lipid panel
- GI consult
ETOH dependence - anxiety but no tremors. CIWA < 3. Denies h/o withdrawal
- continue her alprazolam and fluoxetine
- low risk for etoh withdrawal, monitor for now
- encourage abstain from etoh
- vitamin panel
DVT PPX - lovenox sq
Code status - Full Code
[2025-01-22 21:45] VITALS: BP 133/78
[2025-01-22 21:50] LABS: Alcohol None Detected
[2025-01-22 22:33] VITALS: BP 110/62
[2025-01-22 22:48] VITALS: BMI 43.1
[2025-01-22] MEDS: NSS (PRESERVATIVE FREE) 10 ML IV (23:11)
[2025-01-22] MEDS: NSS 1000 IV (23:11)
[2025-01-22] MEDS: PROTONIX IV 40 MG IV (23:11)
[2025-01-22] MEDS: XANAX 1 MG PO (23:12)
[2025-01-22 23:17] LABS: Magnesium 1.7 mg/dl (1.6-2.3); Phosphorus 2.4 mg/dl (2.5-4.5)
[2025-01-22] MEDS: DILAUDID 1 MG IV (23:26)
[2025-01-22 23:28] LABS: B-Hydroxybutyrate 0.11 mmol/L (0.02-0.27)
[2025-01-22 23:37] LABS: Urine Albumin Negative (Neg - Trace); Urine Bilirubin Negative (Negative); Urine Character Clear (Clear); Urine Color Yellow; Urine Glucose Negative (Negative); Urine Ketone Negative (Negative); Urine Leukocyte Negative (Negative); Urine Nitrite Negative (Negative); Urine Occult Blood 1+ (Negative); Urine Urobilinogen Negative (Neg - 1+)
[2025-01-22 23:44] LABS: INR 1.02; PT 13.7 Sec (11.4-14.6)
[2025-01-22 23:45] LABS: APTT 24.1 Sec (23.4-35.0)
[2025-01-22 23:49] LABS: Amphetamines Negative (Negative); Barbiturates Negative (Negative); Benzodiazepines Positive (Negative); Buprenorphine Negative (Negative); Cocaine Negative (Negative); Marijuana Negative (Negative); Methadone Negative (Negative); Methamphetamines Negative (Negative); Opiates Positive (Negative); Phencyclidine Negative (Negative); Tricyclic Antidepressants Negative (Negative)
[2025-01-23 00:04] LABS: Fentanyl, Urine Negative (Negative)
[2025-01-23] MEDS: PROZAC 40 MG PO ×2 (00:05→21:20)
[2025-01-23] MEDS: PROZAC 10 MG PO ×2 (00:05→21:20)
[2025-01-23 00:47] LABS: Urine Bacteria Few (Negative); Urine Squamous Cell >30 /LPF (Few)
[2025-01-23] MEDS: DILAUDID 1 MG IV ×5 (03:56→21:21)
[2025-01-23] MEDS: NSS 1000 IV ×4 (03:58→22:49)
[2025-01-23 07:00] VITALS: BP 122/80
[2025-01-23] MEDS: NSS (PRESERVATIVE FREE) 10 ML IV (08:19)
[2025-01-23] MEDS: PROTONIX IV 40 MG IV (08:19)
[2025-01-23] MEDS: XANAX PO (08:19)
[2025-01-23 09:20] LABS: GGTP 65 U/L (12-43); Lipase 118 U/L (23-300); Triglycerides 132 mg/dl (10-149)
--- NOTE | 2025-01-23 09:31 | W.PN.HOSP.TC ---
Today's Communication/Plan
-
IVF, advance diet
Assessment / Plan
Assessment / Plan
35yo F with PMHX of hiatal hernia repair, gastric sleeve, recurrent pancreatitis, anxiety came with epigastric pain radiating to [facility] for 1 day before admission and found acute pancreatitis. Had 3 shots of alcohol 2 days prior since it was her
birthday celebration.
A/P:
#Acute recurrent alcoholic pancreatitis
Followed by - on Usodiol, since concern for microstones
Post cholecystectomy
Triglycerides and Ca WNL
IVF, pain mgmt, advance diet slowly
GI consult placed by admiting physician
#Anxiety d/o
cont home meds
#Cervical cyst
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
#Obesity
decrease calorie intake
DVT ppx on lovenox
Full code
I hav espent at least 57min reviewing chart, test results and providing direct patient care
Anticipated Discharge: 24 - 48 hours
Subjective/Interval History
-
Date of Service: January 23, 2025
Objective Data
-
Labs:
Laboratory Results
01/22/25
23:17
PT 13.7
INR 1.02
APTT 24.1
Vital Signs:
Vital Signs
Temp Pulse Resp BP Pulse Ox
97.8 F 79 16 122/80 96
01/23/25 07:00 01/23/25 07:00 01/23/25 07:00 01/23/25 07:00 01/23/25 07:00
I&O
01/22/25 01/23/25 01/24/25
06:59 06:59 06:59
Intake Total 120 / 120
Balance 120 / 120
Review of Systems
-
History Source: Patient
All other systems: Reviewed and negative
Physical Exam
-
General: No Apparent Distress
HEENT: Normocephalic
Cardiac: Regular Rhythm
GI: Soft, Nondistended and Tender
Musculoskeletal: No Clubbing, No Cyanosis and No Edema
Neuro: Awake, Alert, Oriented and AO x 3
Psych: Calm
--- NOTE | 2025-01-23 09:50 | CON.GI ---
Addendum entered and electronically signed by Mervin Monterroso MD 01/23/25 13:55:
I saw and evaluated the patient. I reviewed the resident�s note and agree with findings and plan as documented in the resident�s note.
35yo female presents with second attack of pancreatitis, following 3 alcoholic drinks on her birthday. Had similar episode last year on her birthday with abd pain radiating into back. Had cholecystectomy. Does not drink regularly or excessively.
CT shows normal pancreas but Lipase 4000. LFTs minimally elevated AST 76, ALT 42, Bili 0.6
REC:
Likely EtOH pancreatitis
Continue clears, aggressive IVF
Advance diet tomorrow if doing well
Recommended EtOH abstinence. She is agreeable
Original Note:
Consultation
-
Date/Time Consultation Requested: 01/22/2025 22:54
Date/Time Consultation Performed: 01/23/2025 09:50
Requesting Provider: Yasmine Mcgovern CRNP
Performing Provider: Yazmin Jenkins MD
Reason for Consultation: Pancreatitis
Medical History
Chief Complaint / HPI
Chief Complaint: Abdominal pain
History of Present Illness:
The patient is a 35-year-old female with a significant past medical history of one episode of acute pancreatitis in 2023, hyperlipidemia, fatty liver, obesity status post gastric sleeve in October 2022 , depression/anxiety who presented to ER on
01/22/2025 complaining from abdominal pain radiating to her back associated with vomiting bilious fluid. The patient reported that she had 3 shots of alcoholic beverage 3 days ago at her birthday celebration. The following day, on Tuesday, the patient
threw up at midnight and following day her abdominal pain started. She her pain gradually increased and she needed to come ER. The patient also reported taking kratom 2 days ago to help her abdominal and back pain. Patient denies taking kratom
regularly and reports she took it a few times since October 2024. The patient reported she had some moderate pain about 2 weeks ago when she drank with her friends on weekend but it resolved spontaneously and denied taking kratom at that time.
The patient reports improvement with her pain and nausea this morning. She denies hematemesis, dysphagia, GERD, acholic stools, bilirubinuria, melena, diarrhea, sick contacts, IV drug use. But the patient endorses having constipation since last
month and has been taking MiraLAX to help it. Reports her last bowel movement 2 days ago and seems her constipation can be related with Kratom taking. The patient denies any other new medication.
Past Medical History
Past Medical History: Hypercholesterolemia, Psychiatric (Depression/ anxiety) and Other (History of pancreatitis, fatty liver)
Past Surgical History: Cholecystectomy (In 2022) and Other (sleeve gastrectomy )
Social History
Tobacco: Vaping (Nicotine)
Alcohol: Occasional (Since 21 years old-denies problem with alcohol use)
Drug: Other (Kratom since October 2024-45 times)
Personal:
Living: With Family
Employment: Employed
Family History
Family History: Other (Father has hypercholesterolemia)
Allergies / Home Medications
Allergy/AdvReac Type Severity Reaction Status Date / Time
No Known Allergies Allergy Verified 02/12/24 23:11
�Medication �Instructions �Recorded
alprazolam 1 mg tablet 1 mg PO DAILYPRN PRN anxiety 02/12/24
fluoxetine 40 mg capsule 40 mg PO HS Mental Health/Anxiety 02/12/24
alprazolam 1 mg tablet 2 mg PO HS 02/14/24
cyanocobalamin (vitamin B-12) 1,000 mcg PO DAILY 01/22/25
1,000 mcg tablet
dicyclomine 20 mg tablet 20 mg PO TIDPRN PRN abd cramping 01/22/25
fluoxetine 10 mg capsule 10 mg PO HS 01/22/25
ondansetron HCl 4 mg tablet 4 mg PO Q8HPRN PRN nausea 01/22/25
polyethylene glycol 3350 17 gram 17 g PO DAILYPRN PRN constipation 01/22/25
oral powder packet (Miralax)
ursodiol 500 mg tablet 1,000 mg PO DAILY 01/22/25
ursodiol 500 mg tablet 500 mg PO HS 01/22/25
Review of Systems
-
History Source: Patient
Constitutional: Reports No Symptoms
EENT: Reports No Symptoms
Respiratory: Reports No Symptoms
Cardiac: Reports No Symptoms
Abdomen/GI: Reports Abdominal Pain
: Reports No Symptoms
Musculoskeletal: Reports No Symptoms
Skin: Reports No Symptoms
Neurological: Reports No Symptoms
Vital Signs
Temp Pulse Resp BP Pulse Ox
97.8 F 79 16 122/80 96
01/23/25 07:00 01/23/25 07:00 01/23/25 07:00 01/23/25 07:00 01/23/25 07:00
Physical Exam
Exam
HEENT: Normocephalic
Respiratory: Clear
Cardiac: S1/S2
GI: Soft, Non Distended and Tender (On mid abdominal area-no pain on RUQ to palpation)
Musculoskeletal: No Clubbing, No Cyanosis and No Edema
Skin: Warm
Neuro: Awake, Alert, Oriented and AO x 3
Psych: Calm
Results
WBC 11.6 10^3/uL (4.8-10.8) H 01/22/25 13:52
Hgb 12.6 g/dL (12.0-16.0) 01/22/25 13:52
Hct 39.8 % (37.0-47.0) 01/22/25 13:52
MCV 80.1 fL (81.0-99.0) L 01/22/25 13:52
Plt Count 249 10^3/uL (130-400) 01/22/25 13:52
Absolute Neuts (auto) 7.9 10^3/uL (1.4-6.5) H 01/22/25 13:52
PT 13.7 Sec (11.4-14.6) 01/22/25 23:17
INR 1.02 01/22/25 23:17
APTT 24.1 Sec (23.4-35.0) 01/22/25 23:17
Sodium 138 mmol/L (135-145) 01/22/25 13:52
Potassium 4.3 mmol/L (3.5-5.1) 01/22/25 13:52
Chloride 108 mmol/L (98-107) H 01/22/25 13:52
Carbon Dioxide 24 mmol/L (22-30) 01/22/25 13:52
BUN 10 mg/dl (7-17) 01/22/25 13:52
Creatinine 0.8 mg/dL (0.6-1.0) 01/22/25 13:52
Calcium 8.9 mg/dl (8.4-10.2) 01/22/25 13:52
Total Bilirubin 0.6 mg/dl (0.2-1.3) 01/22/25 13:52
AST 76 U/L (14-36) H 01/22/25 13:52
ALT 42 U/L (0-35) H 01/22/25 13:52
Alkaline Phosphatase 84 U/L (38-126) 01/22/25 13:52
Lipase 118 U/L (23-300) 01/23/25 07:30
Diagnostic Image Results:
01/22/[address]:
FINDINGS: CT of the abdomen and pelvis with oral contrast and with intravenous contrast.
Mild to moderate elevation of the right hemidiaphragm, stable. Minimal dependent atelectasis in the posterior lower lungs. There is no significant pleural effusion and no significant pericardial effusion.
The patient is status post cholecystectomy. There is no evidence for biliary ductal dilation. There is no CT evidence for bile duct calculus.
By CT, the pancreas appears within normal limits with no evidence for significant pancreatic edema and no evidence of pancreatic necrosis. There is no evidence for pseudocyst or developing abscess.
The liver is enlarged with craniocaudal dimension of 21.5 cm. No evidence for a focal hepatic lesion. The main portal vein and its branches appear patent as well as the splenic vein and the SMV. The hepatic veins are patent.
Spleen appears within normal limits, with maximum dimension of 10.0 cm, within normal range of less than 13 cm.
Both adrenal glands appear normal.
No focal abnormality of the kidneys. The visualized pelvicalyceal systems and ureters appear within normal limits.
The bladder appears normal.
The aorta appears normal. No significantly enlarged abdominal or pelvic lymph nodes are identified.
There is evidence of gastric sleeve operation. There is no evidence for bowel obstruction and no evidence of free intraperitoneal air. Appendix appears normal. No significant bowel wall thickening is identified.
There is no CT evidence of diverticulitis.
There is a 1 cm cyst in the posterior and superior aspect of the cervix. No other abnormality of the uterus.
Both ovaries appear grossly within normal limits. No significant free pelvic fluid is identified.
No evidence for spondylolisthesis. No significant changes of degenerative disc disease in the lumbar spine. Minimal degenerative disc disease in the visualized lower thoracic spine. Minimal degenerative change of both hip joints.
IMPRESSION: Status post cholecystectomy with no evidence for biliary ductal dilation.
The pancreas appears within normal limits by CT in this patient with an elevated lipase value.
Hepatomegaly.
The appendix appears normal. No evidence for bowel obstruction or free intraperitoneal air.
Evidence of previous gastric sleeve surgery..
Prior GI Procedures: No known
EGD:
Colonoscopy:
Assessment / Plan
-
Assessment
Ms. Lopez is a 35 years old female who was admitted to the hospital for intense abdominal pain which started 2 days ago. The patient has past medical history of acute pancreatitis in 2023 with similar symptoms and another abdominal pain
episode related to gallbladder stones resulting cholecystectomy in 2022. The patient reported consuming alcohol on the weekends and following days experiencing gradually worsening abdominal pain associated with nausea and radiating to her back.
She also reported having mild to moderate pain 2 weeks ago after she consumed alcohol about 2 weeks ago which resolved spontaneously. The patient also reported taking Kratom to help her abdominal/back pain and denied any other new medication. At
ER admission, patient's lab results were significant for elevated lipase over 4000, AST to 76, ALT to 42, GGT to 65 and total bilirubin level to 0.6. Her abdominal CT was not remarkable to suggest pancreatitis, but showed hepatomegaly.
Impression
Pancreatitis, second episode of possible alcohol related vs drug-induced
Transaminitis
History of fatty liver
Depression/anxiety
History of gallbladder stone s/p cholecystectomy
Plan
#Pancreatitis possibly secondary to alcohol consuming vs choledocholithiasis vs drug induced
-Lipase level over 4000
-TB level normal at 0.6/No acholic stools/ No bilirubinuria
-Abdominal CT: Not remarkable suggesting pancreatitis/Not significant for choledocholithiasis,
-TG, calcium normal
-Continue IV fluids, pain management
-Some improvement with pain and nausea
-Currently on clear liquids-can advance with pain improvement
#Transaminitis (hepatocellular pattern)
-Abdominal CT: Hepatomegaly/History of fatty liver
-AST 76, ALT 42 ----previous labs from other labs 10/14 was in normal range
-Possibly due pancreatitis
-Not likely due kratom use: Kratom use is associated with reversible liver injury with a cholestatic pattern [[email or web address]/contents/itsnqy-rtlnzh-ekfamaf-pqar-tatcz-ave-chronic-use/abstract/58-63].
-Trend LFTs daily
-
-
Thank you for consultation and allowing me to participate in the patient's care. Please call the design consultant GI physician during the after hours with any questions or concerns.
[2025-01-23 10:16] LABS: Folate 3.5 ng/ml (2.76-20); Vitamin B12 448 pg/ml (239-931)
[2025-01-23] MEDS: MAGNESIUM SULFATE 50 IV (10:17)
[2025-01-23] MEDS: VITAMIN B-12 1000 MCG PO (10:23)
[2025-01-23] MEDS: URSO 1000 MG PO (10:23)
[2025-01-23] MEDS: NICODERM TRANSDERMAL 7 MG TRANSDERM (12:35)
[2025-01-23] MEDS: ZOFRAN 4 MG IV ×2 (12:45→20:29)
[2025-01-23 15:00] VITALS: BP 131/78
--- NOTE | 2025-01-23 15:03 | CM ---
Met with patient to obtain information for assessment. Patient stated that she lives alone in an apartment with no steps. She is independent with her ADLs, personal care, dressing and bathing. 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
clean. Patient drives and can get to appointments and do her own shopping. She has a BiPAP. She has never had VN services. She has a prescription plan and uses, [facility] in [place] for all of her medications.
Patient's PCP is, Rhianna Jason.
Plan: Case management will continue to follow and assist with discharge planning. Home when stable.
[2025-01-23] MEDS: LOVENOX 40 MG SC (16:44)
[2025-01-23] MEDS: XANAX 1 MG PO ×2 (20:07→20:08)
[2025-01-23] MEDS: URSO 500 MG PO (21:21)
[2025-01-23 23:39] VITALS: BP 106/63
[2025-01-24] MEDS: DILAUDID 1 MG IV ×4 (02:23→18:01)
[2025-01-24] MEDS: NSS 1000 IV ×4 (05:27→23:10)
[2025-01-24] MEDS: ZOFRAN 4 MG IV ×3 (05:28→18:04)
[2025-01-24 07:00] VITALS: BP 146/95
[2025-01-24 07:02] LABS: % Basophils 0.6 % (0-2); % Eosinophils 16.1 % (0-6); % Immature Granulocytes 0.1 % (0-0.5); % Lymphocytes 29.3 % (20.5-51.1); % Monocytes 5.9 % (1.7-9.3); Absolute Eosinophils 1.1 10^3/uL (0-0.7); Absolute Monocytes 0.4 10^3/uL (0.1-0.6); Absolute Neutrophils 3.3 10^3/uL (1.4-6.5); Hematocrit 33.3 % (37.0-47.0); Hemoglobin 10.6 g/dL (12.0-16.0); Mean Corp Hgb Conc. 31.8 g/dL (33.0-37.0); Mean Corpuscular Hgb 25.9 pg (27.0-31.0); Mean Corpuscular Volume 81.2 fL (81.0-99.0); Nucleated Red Blood Cells % 0 %; Platelet Count 191 10^3/uL (130-400); Red Cell Dist. Width 20.5 % (11.5-14.5); White Blood Cell Count 6.8 10^3/uL (4.8-10.8)
[2025-01-24 07:22] LABS: ALT (SGPT) 43 U/L (0-35); AST (SGOT) 27 U/L (14-36); Alkaline Phosphatase 86 U/L (38-126); Blood Urea Nitrogen 5 mg/dl (7-17); Calcium 7.9 mg/dl (8.4-10.2); Carbon Dioxide 23 mmol/L (22-30); Chloride 108 mmol/L (98-107); Estimated Creatinine Clearance > 125 ml/min; Glucose 92 mg/dl (70-99); Lipase 44 U/L (23-300); Sodium 135 mmol/L (135-145); Total Bilirubin 0.4 mg/dl (0.2-1.3); Total Protein 5.3 g/dl (6.3-8.2); eGFR > 60.00
[2025-01-24] MEDS: NICODERM TRANSDERMAL TRANSDERM ×2 (08:26→08:44)
[2025-01-24] MEDS: VITAMIN B-12 1000 MCG PO (08:26)
[2025-01-24] MEDS: URSO 1000 MG PO (08:26)
[2025-01-24] MEDS: NSS (PRESERVATIVE FREE) 10 ML IV (08:27)
[2025-01-24] MEDS: PROTONIX IV 40 MG IV (08:27)
[2025-01-24] MEDS: XANAX PO (09:17)
--- NOTE | 2025-01-24 11:06 | W.PN.HOSP.TC ---
Today's Communication/Plan
-
advance diet
cont IVF
Assessment / Plan
Assessment / Plan
35yo F with PMHX of hiatal hernia repair, gastric sleeve, recurrent pancreatitis, anxiety came with epigastric pain radiating to [facility] for 1 day before admission and found acute pancreatitis. Had 3 shots of alcohol 2 days prior since it was her
birthday celebration.
A/P:
#Acute recurrent alcoholic pancreatitis
Followed by - on Usodiol, since concern for microstones
Post cholecystectomy
Triglycerides and Ca WNL
IVF, pain mgmt, advance diet slowly
GI consult
#Mild chronic transaminitis
cont to follow with outpatient GI
#Anxiety d/o
cont home meds
#Cervical cyst
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
#Obesity
decrease calorie intake
DVT ppx on lovenox
Full code
I have spent at least 57min reviewing chart, test results and providing direct patient care
Anticipated Discharge: 24 - 48 hours
Subjective/Interval History
-
Date of Service: January 24, 2025
Objective Data
-
Labs:
Laboratory Results
01/24/25
06:04
WBC 6.8
Hgb 10.6 L
Hct 33.3 L
Plt Count 191 D
Sodium 135
Potassium 4.0
Chloride 108 H
Carbon Dioxide 23
BUN 5 L
Creatinine 0.7
Glucose 92
Calcium 7.9 L
Total Bilirubin 0.4
AST 27
ALT 43 H
Alkaline Phosphatase 86
Vital Signs:
Vital Signs
Temp Pulse Resp BP Pulse Ox
98.3 F 93 18 146/95 97
01/24/25 07:00 01/24/25 07:00 01/24/25 07:00 01/24/25 07:00 01/24/25 07:00
I&O
01/23/25 01/24/25 01/25/25
06:59 06:59 06:59
Intake Total 120 / 120 3240 / 3240
Output Total 800 / 800
Balance 120 / 120 2440 / 2440
Review of Systems
-
History Source: Patient
All other systems: Reviewed and negative
Physical Exam
-
General: No Apparent Distress
HEENT: Normocephalic
Respiratory: Clear to Auscultation
GI: Soft, Nondistended and Tender (mildly)
Neuro: Awake, Alert, Oriented and AO x 3
Psych: Calm
[2025-01-24 12:04] LABS: Urine Albumin Negative (Neg - Trace); Urine Bilirubin Negative (Negative); Urine Character Clear (Clear); Urine Color Yellow; Urine Glucose Negative (Negative); Urine Ketone Negative (Negative); Urine Leukocyte Negative (Negative); Urine Nitrite Negative (Negative); Urine Occult Blood Negative (Negative); Urine Urobilinogen Negative (Neg - 1+); Urine pH 6.5 (5.0-9.0)
--- NOTE | 2025-01-24 12:13 | W.PN.GI.CBS2 ---
Addendum entered and electronically signed by Mervin Monterroso MD 01/24/25 12:45:
I saw and evaluated the patient. I reviewed the resident�s note and agree with findings and plan as documented in the resident�s note.
Tolerated clears, but still feels some nausea, difficulty urinating
ABD soft mild tender
REC:
Try full liquids today. Can advance to low fat diet tomorrow and possible d/c
She is agreeable to stop EtOH completely
d/c Kratom
Original Note:
Today's Communication / Plan
-
-Low fat diet can be started if patient tolerated full liquid diet
-Follow LFTs daily
Assessment / Plan
-
Assessment
Ms. Lopez is a 35 years old female who was admitted to the hospital for intense abdominal pain which started 2 days ago. The patient has past medical history of acute pancreatitis in 2023 with similar symptoms and another abdominal pain
episode related to gallbladder stones resulting cholecystectomy in 2022. The patient reported consuming alcohol on the weekends and following days experiencing gradually worsening abdominal pain associated with nausea and radiating to her back.
She also reported having mild to moderate pain 2 weeks ago after she consumed alcohol about 2 weeks ago which resolved spontaneously. The patient also reported taking Kratom to help her abdominal/back pain and denied any other new medication. At
ER admission, patient's lab results were significant for elevated lipase over 4000, AST to 76, ALT to 42, GGT to 65 and total bilirubin level to 0.6. Her abdominal CT was not remarkable to suggest pancreatitis, but showed hepatomegaly.
Impression
Pancreatitis, second episode of possible alcohol related vs drug-induced
Transaminitis
History of fatty liver
Depression/anxiety
History of gallbladder stone s/p cholecystectomy
Plan
#Pancreatitis possibly secondary to alcohol consuming vs choledocholithiasis vs drug induced
-Lipase level was over 4000 at admission - trended down to 44
-TB level normal at 0.6/No acholic stools/ No bilirubinuria
-Abdominal CT: Not remarkable suggesting pancreatitis/Not significant for choledocholithiasis,
-TG, calcium normal
-Continue IV fluids, pain management
-Some improvement with pain and nausea
-Currently on clear liquids-can advance with pain improvement
#Transaminitis (hepatocellular pattern)
-Abdominal CT: Hepatomegaly/History of fatty liver
-AST 76, ALT 42 at admsission AST 27 in WNL and ALT trended down to 43
-Possibly due pancreatitis
-Not likely due kratom use: Kratom use is associated with reversible liver injury with a cholestatic pattern [[email or web address]://www.[employer]/contents/ksephp-aageke-yrwlwdo-guzi-aelfv-ank-chronic-use/abstract/58-63].
-Trend LFTs daily
Subjective
Subjective
Date of Service: January 24, 2025
Patient reports having 3 episodes if non-bloody diarrhea last year and feeling some feverish. Denies worsening abdominal pain bowel movements. Reports improvement with her pain today. She reported tolerating having jell-0 without exacerbated
abdominal pain and willing to try normal diet.
Objective
Data Reviewed
Laboratory Data:
Laboratory Results
01/24/25 06:04
01/24/25 06:04
Laboratory Results
PT 13.7 Sec (11.4-14.6) 01/22/25 23:17
INR 1.02 01/22/25 23:17
APTT 24.1 Sec (23.4-35.0) 01/22/25 23:17
Phosphorus Cancelled 01/22/25 22:25
Magnesium Cancelled 01/22/25 22:25
Total Bilirubin 0.4 mg/dl (0.2-1.3) 01/24/25 06:04
AST 27 U/L (14-36) 01/24/25 06:04
ALT 43 U/L (0-35) H 01/24/25 06:04
Alkaline Phosphatase 86 U/L (38-126) 03/06/25 06:04
Lipase 44 U/L (23-300) 01/24/25 06:04
Vital Signs and I&O:
Vital Signs
Temp Pulse Resp BP Pulse Ox
98.3 F 93 18 146/95 97
01/24/25 07:00 01/24/25 07:00 01/24/25 07:00 01/24/25 07:00 01/24/25 07:00
I&O
01/23/25 01/24/25 01/25/25
06:59 06:59 06:59
Intake Total 120 / 120 3240 / 3240
Output Total 800 / 800
Balance 120 / 120 2440 / 2440
Physical Exam
Physical Exam
HEENT: Anicteric
Cardiology: Normal Sinus Rhythm, S1 and S2
Pulmonary: Clear
GI: Soft, Non Distended, Non Tender and Other (mild pain on the mid abdominal area to palpation )
Rectal: Brown
Extremities: No Edema
Neuro: Non Focal
[2025-01-24 15:00] VITALS: BP 137/88
[2025-01-24] MEDS: LOVENOX 40 MG SC (17:16)
[2025-01-24] MEDS: BENTYL 20 MG PO (20:07)
[2025-01-24] MEDS: COMPAZINE 10 MG IV (20:29)
[2025-01-24] MEDS: PROZAC 10 MG PO (21:12)
[2025-01-24] MEDS: PROZAC 40 MG PO (21:13)
[2025-01-24] MEDS: URSO 500 MG PO (21:13)
[2025-01-24] MEDS: XANAX 2 MG PO (21:15)
[2025-01-24 23:25] VITALS: BP 118/50
[2025-01-25] MEDS: DILAUDID 1 MG IV ×2 (01:37→06:19)
[2025-01-25] MEDS: NSS 1000 IV (06:16)
[2025-01-25 07:45] VITALS: BP 121/71
[2025-01-25] MEDS: VITAMIN B-12 1000 MCG PO (08:24)
[2025-01-25] MEDS: URSO 1000 MG PO (08:24)
[2025-01-25] MEDS: PROTONIX IV 40 MG IV (08:25)
[2025-01-25] MEDS: NSS (PRESERVATIVE FREE) 10 ML IV (08:25)
[2025-01-25] MEDS: NICODERM TRANSDERMAL TRANSDERM (08:27)
[2025-01-25 08:48] LABS: ALT (SGPT) 35 U/L (0-35); AST (SGOT) 21 U/L (14-36); Albumin 3.3 g/dl (3.5-5.0); Alkaline Phosphatase 88 U/L (38-126); Blood Urea Nitrogen 3 mg/dl (7-17); Calcium 8.2 mg/dl (8.4-10.2); Carbon Dioxide 24 mmol/L (22-30); Chloride 108 mmol/L (98-107); Estimated Creatinine Clearance > 125 ml/min; Glucose 86 mg/dl (70-99); Lipase 55 U/L (23-300); Sodium 136 mmol/L (135-145); Total Bilirubin 0.5 mg/dl (0.2-1.3); Total Protein 5.8 g/dl (6.3-8.2); eGFR > 60.00
[2025-01-25 08:51] LABS: % Basophils 0.8 % (0-2); % Eosinophils 9.9 % (0-6); % Immature Granulocytes 0.3 % (0-0.5); % Lymphocytes 47.7 % (20.5-51.1); % Monocytes 5.7 % (1.7-9.3); % Neutrophils 35.6 % (42.2-75.2); Absolute Basophils 0.1 10^3/uL (0-0.2); Absolute Eosinophils 0.7 10^3/uL (0-0.7); Absolute Lymphocytes 3.4 10^3/uL (1.2-3.4); Absolute Monocytes 0.4 10^3/uL (0.1-0.6); Absolute Neutrophils 2.6 10^3/uL (1.4-6.5); Hematocrit 36.5 % (37.0-47.0); Hemoglobin 11.6 g/dL (12.0-16.0); Mean Corp Hgb Conc. 31.8 g/dL (33.0-37.0); Mean Corpuscular Hgb 25.8 pg (27.0-31.0); Mean Corpuscular Volume 81.3 fL (81.0-99.0); Mean Platelet Volume 11.5 fL (7.4-10.4); Nucleated Red Blood Cells % 0 %; Platelet Count 210 10^3/uL (130-400); Red Blood Cell Count 4.49 10^6/uL (4.20-5.40); Red Cell Dist. Width 20.7 % (11.5-14.5); White Blood Cell Count 7.2 10^3/uL (4.8-10.8)
--- NOTE | 2025-01-25 09:44 | W.PN.GI.CBS2 ---
Addendum entered and electronically signed by Rito Milner MD 01/25/25 10:50:
I saw and evaluated the patient. I reviewed the resident�s note and agree with findings and plan as documented in the resident�s note.
Pt feeling better. had some abd spasm yesterday but that was with tomato soup.
abd: soft, nontender
impression
abd pain: improved
elevated lipase
fatty liver
plan
low fat diet w/o tomato or lactose
no further inpatient w/u w
will sign off call with questions
Original Note:
Today's Communication / Plan
-
- Will have clear liquids this morning/it can be advanced to low-fat diet if she tolerates
-Discharging can be planned if patient tolerates her diet without abdominal pain spasm/pain
Assessment / Plan
-
Assessment
Ms. Lopez is a 35 years old female who was admitted to the hospital for intense abdominal pain which started 2 days ago. The patient has past medical history of acute pancreatitis in 2023 with similar symptoms and another abdominal pain
episode related to gallbladder stones resulting cholecystectomy in 2022. The patient reported consuming alcohol on the weekends and following days experiencing gradually worsening abdominal pain associated with nausea and radiating to her back.
She also reported having mild to moderate pain 2 weeks ago after she consumed alcohol about 2 weeks ago which resolved spontaneously. The patient also reported taking Kratom to help her abdominal/back pain and denied any other new medication. At
ER admission, patient's lab results were significant for elevated lipase over 4000, AST to 76, ALT to 42, GGT to 65 and total bilirubin level to 0.6. Her abdominal CT was not remarkable to suggest pancreatitis, but showed hepatomegaly.
Impression
Pancreatitis, second episode of possible alcohol related vs drug-induced
Transaminitis
History of fatty liver
Depression/anxiety
History of gallbladder stone s/p cholecystectomy
Plan
#Pancreatitis possibly secondary to alcohol consuming vs choledocholithiasis vs drug induced
-Lipase level was over 4000 at admission - trended down to 55
-TB level normal at 0.5/No acholic stools/ No bilirubinuria
-Abdominal CT: Not remarkable suggesting pancreatitis/Not significant for choledocholithiasis,
-TG, calcium normal
-Continue IV fluids, pain management
-Some improvement with pain and nausea
-Currently still on clear liquids-can advance to low-fat diet if tolerates
#Transaminitis (hepatocellular pattern)
-Abdominal CT: Hepatomegaly/History of fatty liver
-AST 76, ALT 42 at admsission AST 21 in WNL and ALT trended down to 35
-Possibly due pancreatitis
-Not likely due kratom use: Kratom use is associated with reversible liver injury with a cholestatic pattern [[email or web address]://www.[employer]/contents/ateens-kokbrf-jdphzni-spbk-rgeqp-nlb-chronic-use/abstract/58-63].
-Trend LFTs daily
Subjective
Subjective
Date of Service: January 25, 2025
Patient reports having some abdominal pain with tomato soup yesterday afternoon. But reports, she feels much better comparing to last 2 days. Denies abdominal pain or spasm this morning. She will try clear liquids this morning. If she cannot
tolerate clear liquids, attest planning to advance her to low fat diet
Objective
Data Reviewed
Laboratory Data:
Laboratory Results
01/25/25 08:05
01/25/25 08:05
Laboratory Results
PT 13.7 Sec (11.4-14.6) 01/22/25 23:17
INR 1.02 01/22/25 23:17
APTT 24.1 Sec (23.4-35.0) 01/22/25 23:17
Phosphorus Cancelled 01/22/25 22:25
Magnesium Cancelled 01/22/25 22:25
Total Bilirubin 0.5 mg/dl (0.2-1.3) 01/25/25 08:05
AST 21 U/L (14-36) 01/25/25 08:05
ALT 35 U/L (0-35) 01/25/25 08:05
Alkaline Phosphatase 88 U/L (38-126) 01/25/25 08:05
Lipase 55 U/L (23-300) 01/25/25 08:05
Vital Signs and I&O:
Vital Signs
Temp Pulse Resp BP Pulse Ox
97.8 F 65 18 121/71 94
01/25/25 07:45 01/25/25 07:45 01/25/25 07:45 01/25/25 07:45 01/25/25 07:45
I&O
01/24/25 01/25/25 01/26/25
06:59 06:59 06:59
Intake Total 3240 / 3240 6000 / 6000
Output Total 800 / 800
Balance 2440 / 2440 6000 / 6000
Physical Exam
Physical Exam
HEENT: Anicteric
Cardiology: Normal Sinus Rhythm, S1 and S2
Pulmonary: Clear
GI: Soft, Non Distended, Non Tender and Other (Some nausea)
Extremities: No Edema
Neuro: Non Focal
--- NOTE | 2025-01-25 11:20 | W.PN.HOSP.TC ---
Today's Communication/Plan
-
advance diet
avoid opioids
Assessment / Plan
Assessment / Plan
35yo F with PMHX of hiatal hernia repair, gastric sleeve, recurrent pancreatitis, anxiety came with epigastric pain radiating to [facility] for 1 day before admission and found acute pancreatitis. Had 3 shots of alcohol 2 days prior since it was her
birthday celebration.
A/P:
#Acute recurrent alcoholic pancreatitis
Followed by - on Usodiol, since concern for microstones
Post cholecystectomy
Triglycerides and Ca WNL
IVF, pain mgmt, advance diet slowly
GI consult
Advised avoid acidic food, will start on PPI trial
Aready scheduled for EGD later this month with her GI
Avoid opioids
#Mild chronic transaminitis
cont to follow with outpatient GI
#Anxiety d/o
cont home meds
#Cervical cyst
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
#Obesity
decrease calorie intake
DVT ppx on lovenox
Full code
I have spent at least 37min reviewing chart, test results and providing direct patient care
Anticipated Discharge: Within 24 hours
Subjective/Interval History
-
Date of Service: January 25, 2025
Objective Data
-
Labs:
Laboratory Results
01/25/25
08:05
WBC 7.2
Hgb 11.6 L
Hct 36.5 L
Plt Count 210
Sodium 136
Potassium 4.0
Chloride 108 H
Carbon Dioxide 24
BUN 3 L
Creatinine 0.8
Glucose 86
Calcium 8.2 L
Total Bilirubin 0.5
AST 21
ALT 35
Alkaline Phosphatase 88
Vital Signs:
Vital Signs
Temp Pulse Resp BP Pulse Ox
97.8 F 65 18 121/71 94
03/07/25 07:45 01/25/25 07:45 01/25/25 07:45 01/25/25 07:45 01/25/25 07:45
I&O
01/24/25 01/25/25 01/26/25
06:59 06:59 06:59
Intake Total 3240 / 3240 6000 / 6000
Output Total 800 / 800
Balance 2440 / 2440 6000 / 6000
Review of Systems
-
History Source: Patient
All other systems: Reviewed and negative
Physical Exam
-
General: No Apparent Distress
HEENT: Normocephalic
Respiratory: Clear to Auscultation
Cardiac: Regular Rhythm
GI: Soft, Nontender and Nondistended
Neuro: Awake, Alert, Oriented and AO x 3
Psych: Calm
--- NOTE | 2025-01-25 13:17 | W.DCSUMMARY ---
Discharge Summary
Discharge Data
Date of Admission: 01/22/25
Date of Discharge: 01/25/25
-
Pending Results: No
Hospital Course
35yo F with PMHX of hiatal hernia repair, gastric sleeve, recurrent pancreatitis, anxiety came with epigastric pain radiating to [facility] for 1 day before admission and found acute pancreatitis. Had 3 shots of alcohol 2 days prior since it was her
birthday celebration. Improved on IVF, tolerated low fat diet, lipase normalized. Recommended to keep appt for her EGD scheduled with her GI this month, meanwhile - PPI. Dicyclomine for abdominal spasms. Low fat low acidity diet. Patient verbalized
understanding and agreement with recommendations. Medically stable for d/c home as agreed with GI
I have spent at least 37min reviewing chart, test results and providing direct patient care
patient was managed for:
#Acute recurrent alcoholic pancreatitis
#Mild chronic transaminitis
#Anxiety d/o
#Cervical cyst
#Obesity
Discharge Plan
-
Patient Disposition: Home (Routine Discharge)
Discharge Diagnosis/Procedures: pancreatitis
Diet: Low Fat
Activity: As tolerated
Driving Restrictions: As prior to admission
Referrals:
Rhianna Jason CRNP [Family Provider] -
Prescriptions:
New
pantoprazole 40 mg tablet,delayed release (DR/EC)
40 mg PO DAILY Qty: 30 0RF
dicyclomine 20 mg tablet
20 mg PO TIDPRN PRN (Reason: abdominal spasm) Qty: 30 0RF
Continued
fluoxetine 40 mg Capsule
40 mg PO HS
Rx Instructions:
take with 10mg for total of 50mg
alprazolam 1 mg Tablet
1 mg PO DAILYPRN PRN (Reason: anxiety)
alprazolam 1 mg tablet
2 mg PO HS
polyethylene glycol 3350 [Miralax] 17 gram Powder In Packet
17 g PO DAILYPRN PRN (Reason: constipation)
ondansetron HCl 4 mg Tablet
4 mg PO Q8HPRN PRN (Reason: nausea)
cyanocobalamin (vitamin B-12) 1,000 mcg Tablet
1,000 mcg PO DAILY
dicyclomine 20 mg Tablet
20 mg PO TIDPRN PRN (Reason: abd cramping)
fluoxetine 10 mg Capsule
10 mg PO HS
Rx Instructions:
take with 40mg for total of 50mg
ursodiol 500 mg Tablet
1,000 mg PO DAILY
ursodiol 500 mg Tablet
500 mg PO HS
Discharge Orders:
Discharge Patient (As Directed); Ordered 01/25/25
Ordered By: Davion Daugherty
Discharge Date and Time
Print Language: ANGOLAN
--- NOTE | 2025-01-25 13:18 | CM ---
CM reviewed medical records. Plan for discharge to home today.
PLAN: home no needs.
== END 2025-01-25 14:08 | disposition home or self-care (01) | DRG 439 ==
LOC: 1 ACUTE 22:18
PROVIDERS: Clinical Nurse Specialist Family Health; Emergency Medicine; ADMITTING PHYSICIAN Internal Medicine; ATTENDING PHYSICIAN Internal Medicine; CONSULT PHYSICIAN Specialist; EMERGENCY PHYSICIAN Emergency Medicine; FAMILY PHYSICIAN Nurse Practitioner Family
DX: K85.20 Alcohol induced acute pancreatitis without necrosis or infection (principal); Z68.41 Body mass index [BMI] 40.0-44.9, adult; F17.290 Nicotine dependence, other tobacco product, uncomplicated; E66.813 Obesity, class 3; F10.20 Alcohol dependence, uncomplicated; K86.1 Other chronic pancreatitis; N88.8 Other specified noninflammatory disorders of cervix uteri; K76.0 Fatty (change of) liver, not elsewhere classified; R16.0 Hepatomegaly, not elsewhere classified; F32.A Depression, unspecified; F41.9 Anxiety disorder, unspecified; Z90.49 Acquired absence of other specified parts of digestive tract; Z98.84 Bariatric surgery status
CPT/HCPCS: 74177; 80053; 80306; 80307; 81003; 81015; 82010; 82077; 82607; 82746; 82977; 83690; 83735; 84100; 84478; 84703; 85025; 85610; 85730; 87324; 87449; 87798; 89055; 93005; 96361; 96374; 96375; 96376; 99285; 99406; Q9967

== ENCOUNTER 2025-02-08 16:42 | Inpatient (IN) | payer OTHER, SELFPAY ==
[2025-02-08] VITALS (8 sets, daily range): BP systolic 125–152; BP diastolic 72–101; BMI 41.5
--- NOTE | 2025-02-08 14:42 | ED.GENMED ---
History of Present Illness
General
Chief Complaint: Abdominal Pain
Source: patient
Exam Limitations: none
Time Seen by Provider: 02/08/25 14:08
Nursing documentation reviewed up to this point in time: agreed with
History of Present Illness
History of Present Illness:
35-year-old female presenting to the emergency department today with concerns of upper abdominal discomfort that started a few hours prior to arrival with associated nausea no vomiting. Feels very similar to previous episodes of pancreatitis.
Recently had an episode that was very similar few weeks ago.
Past History
Past History
ED Past Medical History: None; Negative Asthma, HTN, Hypercholesterolemia or NIDDM
ED Past Surgical History: Cholecystectomy and Other (Gastric sleeve)
Social History
Tobacco: Vaping (Former Cig smoker but now Vaps)
Alcohol: Occasional
Personal: Single
Living: alone
Review of Systems
Review of Systems
Allergies reviewed?: Yes
All Other Systems: ROS reviewed and negative except as documented in HPI and ROS
Phy Exam
Physical Exam
Physical Exam:
GENERAL: Alert , in no apparent distress
EYE: pupils equal and reactive
NECK: Supple, no significant adenopathy.
ENT: o/p clr, mmm.
CARDIAC: Regular rate and rhythm .
LUNGS: Clear breath sounds bilaterally, no acute respiratory distress, no wheezes/rales/rhonchi
ABDOMEN: Epigastric abdominal pain remainder of the abdomen soft, without focal tenderness, no r/g, no cvat
NEUROLOGICAL: Alert and oriented, no focal neuro deficits
SKIN: Warm and dry, skin intact.
MUSCULOSKELETAL: No edema, well perfused.
PSYCH: Normal and appropriate interaction.
Course
Orders/Labs/Results
Orders:
Orders
02/08/25 14:28
Urinalysis Reflex To Culture Urgent
Date Specimen was Collected: 02/08/25
Time Specimen was Collected: 14:47
0.9% Sodium Chloride 1000 ml [Nss] 1,000 ml IV BOLUS
HYDROmorphone [Dilaudid] 0.5 mg IV NOW STA
02/08/25 14:42
Complete Blood Count/With Diff Urgent
Comprehensive Metabolic Panel Urgent
Lactic Acid Urgent
Lipase Urgent
02/08/25 14:57
Ondansetron Injectable [Zofran] 4 mg .ROUTE .STK-MED ONE
Ondansetron Injectable [Zofran] 4 mg IV NOW STA
Abnormal Lab Results
02/08/25
14:42
WBC 12.8 H 10^3/uL
(4.8-10.8)
RBC 5.57 H 10^6/uL
(4.20-5.40)
MCV 78.6 L fL
(81.0-99.0)
MCH 26.2 L pg
(27.0-31.0)
RDW 20.7 H %
(11.5-14.5)
MPV 11.9 H fL
(7.4-10.4)
Absolute Neuts (auto) 9.4 H 10^3/uL
(1.4-6.5)
Absolute Monos (auto) 0.8 H 10^3/uL
(0.1-0.6)
Lymphocytes % 16.5 L %
(20.5-51.1)
Carbon Dioxide 19 L mmol/L
(22-30)
AST 92 H U/L
(14-36)
ALT 45 H U/L
(0-35)
Lipase 1160 H* U/L
(23-300)
02/08/25 14:42
02/08/25 14:42
Vital Signs
Initial and Last Documented VS:
Initial Vital Signs
Temp Pulse Resp BP Pulse Ox
97.8 F 107 16 152/101 98
02/08/25 13:57 02/08/25 13:57 02/08/25 13:57 02/08/25 13:57 02/08/25 13:57
Last Documented Vital Signs
Temp Pulse Resp BP Pulse Ox
97.8 F 89 16 138/78 98
02/08/25 13:57 02/08/25 14:34 02/08/25 14:34 02/08/25 14:34 02/08/25 14:34
MDM/Problems Addressed
MDM/Problems Addressed:
35-year-old female presenting to the emergency department today with concerns of upper abdominal pain for the last hour or so. Feels very similar to previous episodes of pancreatitis. Lipase significantly elevated at 1160. Plan to admit for
treatment of acute pancreatitis.
*Critical Care Note
Total Time (30-74mins, 75-104mins- exclusive of procedures): Not Applicable
ED Attending Note
-
Portions of this chart may have been created with voice recognition software.� Occasional wrong word or��sound alike� substitutions may have occurred due to the inherent limitations of voice recognition software.
Discharge Plan
Departure
Patient Disposition: Admit
Date of Disposition: 02/08/25
Time of Disposition: 15:38
Admit to: Med/Surg
Admit to doctor: Adalberto
Presentation/result/management discussed w/ accepting MD/DO: Hospitalist
Patient with high blood pressure during this ER visit?: No
Condition: Good
Covid-19: Not Applicable
Discharge Problem:
Acute pancreatitis
Prescriptions:
No Action
fluoxetine 40 mg Capsule
40 mg PO HS
alprazolam 1 mg Tablet
1 mg PO DAILYPRN PRN (Reason: anxiety)
alprazolam 1 mg tablet
2 mg PO HS
cyanocobalamin (vitamin B-12) 1,000 mcg Tablet
1,000 mcg PO DAILY
dicyclomine 20 mg Tablet
20 mg PO TIDPRN PRN (Reason: abd cramping)
fluoxetine 10 mg Capsule
10 mg PO HSPRN PRN (Reason: anxiety)
ursodiol 500 mg Tablet
1,000 mg PO DAILY
ursodiol 500 mg Tablet
500 mg PO HS
pantoprazole 40 mg tablet,delayed release (DR/EC)
40 mg PO DAILY Qty: 30 0RF
simethicone [Gas-X] 80 mg Tablet,Chewable
80 mg PO DAILYPRN PRN (Reason: gas pains)
Referrals:
Rhianna Jason CRNP [Family Provider] -
Interventions
Interventions:
*Risk Screen - Suicide Last Done: 02/08/25 13:57
*General Assessment Last Done: 02/08/25 14:33
*Neglect/Abuse Screening Last Done: 02/08/25 13:57
*ED- Fall Risk Assessment Last Done: 02/08/25 14:33
*ED COVID-19 Vaccine History Last Done: 02/08/25 14:33
NR-Rpcllc-Drslrlospd Assessment Last Done: 02/08/25 14:35
Discharge Date and Time
Print Language: BELARUSIAN
[2025-02-08 14:56] LABS: % Basophils 0.6 % (0-2); % Eosinophils 3.3 % (0-6); % Immature Granulocytes 0.2 % (0-0.5); % Lymphocytes 16.5 % (20.5-51.1); % Monocytes 6.5 % (1.7-9.3); % Neutrophils 72.9 % (42.2-75.2); Absolute Basophils 0.1 10^3/uL (0-0.2); Absolute Eosinophils 0.4 10^3/uL (0-0.7); Absolute Lymphocytes 2.1 10^3/uL (1.2-3.4); Absolute Monocytes 0.8 10^3/uL (0.1-0.6); Absolute Neutrophils 9.4 10^3/uL (1.4-6.5); Hematocrit 43.8 % (37.0-47.0); Hemoglobin 14.6 g/dL (12.0-16.0); Mean Corp Hgb Conc. 33.3 g/dL (33.0-37.0); Mean Corpuscular Hgb 26.2 pg (27.0-31.0); Mean Corpuscular Volume 78.6 fL (81.0-99.0); Mean Platelet Volume 11.9 fL (7.4-10.4); Nucleated Red Blood Cells % 0 %; Platelet Count 256 10^3/uL (130-400); Red Blood Cell Count 5.57 10^6/uL (4.20-5.40); Red Cell Dist. Width 20.7 % (11.5-14.5); White Blood Cell Count 12.8 10^3/uL (4.8-10.8)
[2025-02-08] MEDS: ZOFRAN 4 MG IV (15:03)
[2025-02-08] MEDS: DILAUDID 0.5 MG IV ×3 (15:03→21:06)
[2025-02-08] MEDS: NSS 1000 IV (15:04)
[2025-02-08 15:14] LABS: ALT (SGPT) 45 U/L (0-35); AST (SGOT) 92 U/L (14-36); Albumin 4.2 g/dl (3.5-5.0); Alkaline Phosphatase 105 U/L (38-126); Blood Urea Nitrogen 12 mg/dl (7-17); Calcium 9.7 mg/dl (8.4-10.2); Carbon Dioxide 19 mmol/L (22-30); Chloride 107 mmol/L (98-107); Estimated Creatinine Clearance > 125 ml/min; Glucose 98 mg/dl (70-99); Lipase 1160 U/L (23-300); Potassium 4.7 mmol/L (3.5-5.1); Sodium 135 mmol/L (135-145); Total Bilirubin 0.8 mg/dl (0.2-1.3); Total Protein 7.1 g/dl (6.3-8.2); eGFR > 60.00
--- NOTE | 2025-02-08 16:12 | HPS.HSE ---
Family Physician
-
Family Physician: GARO Lao
Chief Complaint
-
abdomimal pain
History of Present Illness
35-year-old female past medical history of recurrent alcoholic pancreatitis, cholecystectomy, anxiety, cervical cyst, obesity, hiatal hernia repair, gastric sleeve, nicotine use disorder, presenting with upper abdominal pain radiating to the back
starting few hours ago with nausea without vomiting. Feels very similar to prior episodes of pancreatitis. She has been having irregular bowel movements. Denies fevers or chills.
Patient was admitted 2 weeks ago for acute pancreatitis attribute to alcohol at that time. She denies drinking any alcohol after her recent admission.
A few days after she went home after the recent admission she started to have worsening abdominal pain which got better somewhat but then pain came back.
Medical History
Past Medical History
Past Medical History: Reports Other ( recurrent alcoholic pancreatitis, cholecystectomy, anxiety, cervical cyst, obesity, hiatal hernia repair, gastric sleeve, nicotine use disorder,)
Past Surgical History: Reports Cholecystectomy and Other (gastric sleeve )
Social History
Tobacco: Vaping
Alcohol: None
Drug: None
Family History
Family History: Not pertinent
Allergies / Home Medications
Allergies reflects when Allergies were last updated in [facility].
Home Medications with original date entered in [facility]
Allergy/Medication List:
Allergies
Allergy/AdvReac Type Severity Reaction Status Date / Time
No Known Allergies Allergy Verified 02/08/25 13:56
Home Medications
alprazolam 1 mg tablet 1 mg PO DAILYPRN PRN anxiety 02/12/24
fluoxetine 40 mg capsule 40 mg PO HS Mental Health/Anxiety 02/12/24
alprazolam 1 mg tablet 2 mg PO HS 02/14/24
cyanocobalamin (vitamin B-12) 1,000 mcg tablet 1,000 mcg PO DAILY 01/22/25
dicyclomine 20 mg tablet 20 mg PO TIDPRN PRN abd cramping 01/22/25
fluoxetine 10 mg capsule 10 mg PO HSPRN PRN anxiety 01/22/25
ursodiol 500 mg tablet 1,000 mg PO DAILY 01/22/25
ursodiol 500 mg tablet 500 mg PO HS 01/22/25
pantoprazole 40 mg tablet,delayed release 40 mg PO DAILY #30 tabs 01/25/25
simethicone 80 mg chewable tablet 80 mg PO DAILYPRN PRN gas pains 02/08/25
Review of Systems
-
History Source: Patient
A 12 point ROS was completed and negative except as noted: Yes
Constitutional: Reports No Symptoms
EENT: Reports No Symptoms
Respiratory: Reports No Symptoms
Cardiac: Reports No Symptoms
Abdomen/GI: Reports See HPI
: Reports No Symptoms
Musculoskeletal: Reports No Symptoms
Skin: Reports No Symptoms
Neurological: Reports No Symptoms
Endocrine: Reports No Symptoms
Hematologic/Lymphatic: Reports No Symptoms
Psych: Reports No Symptoms
Physical Exam
Vital Signs
Vital Signs
Temp Pulse Resp BP Pulse Ox
97.8 F 89 16 138/78 98
02/08/25 13:57 02/08/25 14:34 02/08/25 14:34 02/08/25 14:34 02/08/25 14:34
Physical Exam
General: Well Developed, Well Nourished and No Apparent Distress
HEENT: NormoCephalic, Moist mucous membranes and Atraumatic
Respiratory: Clear
Cardiac: S1/S2 and Regular Rhythm; No Murmur or Rub
GI: Soft, Non Distended, Normal Bowel Sounds and Tender (epigastric ); No Organomegaly
Rectal: Deferred by Provider
Musculoskeletal: No Clubbing, No Cyanosis and No Edema
Skin: No Rash
Neuro: Nonfocal/grossly intact
Laboratory Results
-
02/08/25 14:42
02/08/25 14:42
Laboratory Results
Lactic Acid 1.0 mmol/L (0.7-2.0) 02/08/25 14:42
Total Bilirubin 0.8 mg/dl (0.2-1.3) 02/08/25 14:42
AST 92 U/L (14-36) H 02/08/25 14:42
ALT 45 U/L (0-35) H 02/08/25 14:42
Alkaline Phosphatase 105 U/L (38-126) 02/08/25 14:42
Lipase 1160 U/L (23-300) H* 02/08/25 14:42
Data Reviewed
-
Lab Data: Labs Reviewed by me
Old Records: Reviewed
Impression/Plan
-
IMPRESSION:
PLAN:
# Recurrent acute pancreatitis versus sphincter of Oddi dysfunction
-Lipase 1160
-CT abdomen pelvis shows normal-appearing pancreas, hepatomegaly
-Previously attributed to alcohol but unclear what the trigger is this time
-Normal triglycerides last time
-N.p.o.
-IV fluids
-Zofran, Dilaudid
-Continue dicyclomine, Protonix
-GI consulted
History of cholelithiasis status post cholecystectomy
-Continue ursodiol
Anxiety
-Continue fluoxetine, alprazolam
Cervical cyst
Obesity
Hiatal hernia repair
History of gastric sleeve
Vaping history
Full code
DVT prophylaxis�heparin
N.p.o.
--- NOTE | 2025-02-08 16:27 | CON.GI ---
Addendum entered and electronically signed by Sarika Oshea MD 02/08/25 20:42:
I saw and examined the patient.
The KITCHEN CHEF or PA's note was reviewed and I agree with the note.
Comment: 35-year-old female with history of gastric sleeve in 2022, lost about 27 pounds, history of fatty liver, high cholesterol, who is had multiple admissions for mid abdominal spasm-like pain since 2022, had her gallbladder removed in 2022,
still had 1 episode in 2023 with abdominal pain and again TWO EPISODES in January 2025. She reports that around 11 AM this morning she started having severe spasm in the mid abdomen like a band radiating to the back with some nausea and she came into
the emergency room. When she has these episodes, she would have elevated lipase to more than 4000 but imaging without any evidence of pancreatitis. CT scan earlier this month without pancreatitis and MRI in January 2024 showing normal pancreas. She
has chronically elevated AST and ALT since 2022, about 1-1/2-2 times upper limit of normal recently. Total bilirubin and alkaline phosphatase within normal limits. She did have IgG4 level checked previously which was negative. She follows up with
a GI doctor at [facility] in [place], Dr. Colvin. As per patient, she was noted to have anemia, got IV iron infusion with [place] [facility] about a month ago. Upper endoscopy and colonoscopy done with [facility] 02/06/2025, upper
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 Gastritis, biopsies taken biopsies for celiac disease taken from duodenum. Colonoscopy was unremarkable. Small bowel capsule study is planned. She reports that she did well after the
procedure but pain started today.
She was also started on estradiol about 3 weeks ago, 2 tablets in the morning and 1 tablet at night. No family history of pancreatic issues. She vapes nicotine and reports that she has not had alcohol since her last admission early January.
-Abdominal pain, elevated lipase , no radiologic evidence of pancreatitis on recent CT scan early January.
Unclear etiology for abdominal pain.
Given elevated lipase, agree with MRI of the abdomen with MRCP.
Denies any recent alcohol use, herbal supplements. No recent new medication.
If MRI is negative, she will benefit from consultation with pancreatic specialist.
Does not meet Willard criteria for sphincter of dysfunction.
Patient's sister is a nurse practitioner with Dr. Ryan Lainez at [place], she is going to get an appointment with him for this coming Tuesday.
-Elevated transaminases, likely from fatty liver.
She follows up with Dr. Colvin at [facility]. As per patient, she had workup for elevated liver enzymes and she has got a follow-up with them again.
-History of anemia, currently hemoglobin stable. They can follow-up with Dr. Colvin as outpatient.
Original Note:
Consultation
-
Date/Time Consultation Requested: 02/08/251609
Date/Time Consultation Performed: 02/08/25 1630
Requesting Provider: JANIS Negrete
Performing Provider: GARO Winn, Sarika Oshea MD
Reason for Consultation: pancreatitis
Medical History
Chief Complaint / HPI
Chief Complaint: abdomina pain
History of Present Illness:
Pt is a 35yo with hx obesity with prior gastric sleeve 2021, michelle 2022, iron deficiency, hypercholesterolemia, fatty liver, depression/anxiety with multiple prior admission with pancreatitis. She had admission in 2023 then 01/22/25- 01/25/25 with
admission with concern for ETOH related pancreatitis and now returns with abdominal pain. CT last admission with prior michelle, pancreas appears normal, HM, normal appendix and prior gastric sleeve. In review with patient she is concerned ETOH not
related. She admits to several drinks for her birthday but denies chronic use and last ETOH as 1 month prior. She follows with Dr. Carrero at [facility]. She recently completed EGD/colon with Dr. Carrero 02/06 for anemia work up with EGD-
regular Z line, health appearing gastric sleeve patchy inflammation gastric antrum, single angiodysplastic lesion without bleeding in second portion of duodenum and colon with normal colon and TI. Plan was for capsule next and she did review for
possible sphincter of Isaiah dysfunction. She has had 2 hospital admission and several ER visits for similar symptoms. On admission noted with WBC 12.8, hbg 14.6, platelet 256, tish 0.. AST 92, ALT 45, alk phos 105, lipase 1160. Triglcyerides normal
last admission. IGG4 normal in 2023.
In review with patient noted with ongoing issues with abdominal spasm. She did have some nausea and dry heaves with pain. She admits to diarrhea and constipation with since prior admission. She denies dysphagia, GERD. No new medications.
Past Medical History
Past Medical History: Hypercholesterolemia, Psychiatric (anxiety/depression) and Other (recurrent ETOH pancreatitis, cervical cyst, HH repair, gastric sleeve, tobacco abuse, fatty liver)
Past Surgical History: Cholecystectomy
Social History
Tobacco: Vaping
Alcohol: Occasional
Drug: None
Living: Alone
Employment: Not Employed (recently layed off from job)
Family History
Family History: Other (no family hx pancreatic problems)
Allergies / Home Medications
Allergy/AdvReac Type Severity Reaction Status Date / Time
No Known Allergies Allergy Verified 02/08/25 13:56
�Medication �Instructions �Recorded
alprazolam 1 mg tablet 1 mg PO DAILYPRN PRN anxiety 02/12/24
fluoxetine 40 mg capsule 40 mg PO HS Mental Health/Anxiety 02/12/24
alprazolam 1 mg tablet 2 mg PO HS 02/14/24
cyanocobalamin (vitamin B-12) 1,000 mcg PO DAILY 01/22/25
1,000 mcg tablet
dicyclomine 20 mg tablet 20 mg PO TIDPRN PRN abd cramping 01/22/25
fluoxetine 10 mg capsule 10 mg PO HSPRN PRN anxiety 01/22/25
ursodiol 500 mg tablet 1,000 mg PO DAILY 01/22/25
ursodiol 500 mg tablet 500 mg PO HS 01/22/25
pantoprazole 40 mg tablet,delayed 40 mg PO DAILY #30 tabs 01/25/25
release
simethicone 80 mg chewable tablet 80 mg PO DAILYPRN PRN gas pains 02/08/25
Review of Systems
-
History Source: Patient
Constitutional: Reports Chills
EENT: Reports No Symptoms
Respiratory: Reports No Symptoms
Cardiac: Reports No Symptoms
Abdomen/GI: Reports Abdominal Pain, Nausea, Vomiting (dry heaves ), Diarrhea and Constipated
: Reports No Symptoms
Musculoskeletal: Reports No Symptoms
Skin: Reports No Symptoms
Neurological: Reports Weakness
Endocrine: Reports No Symptoms
Hematologic/Lymphatic: Reports No Symptoms
Vital Signs
Temp Pulse Resp BP Pulse Ox
97.8 F 89 16 138/78 98
02/08/25 13:57 02/08/25 14:34 02/08/25 14:34 02/08/25 14:34 02/08/25 14:34
Physical Exam
Exam
General: Well Developed, Well Nourished and No Apparent Distress
HEENT: Normocephalic and Anicteric
Respiratory: Clear
Cardiac: Regular Rhythm
GI: Soft, Non Distended and Tender (mild epigastric pain)
Musculoskeletal: No Clubbing and No Cyanosis
Skin: Warm and Dry
Neuro: Awake, Alert and AO x 3
Psych: Calm
Results
WBC 12.8 10^3/uL (4.8-10.8) H 02/08/25 14:42
Hgb 14.6 g/dL (12.0-16.0) 02/08/25 14:42
Hct 43.8 % (37.0-47.0) 02/08/25 14:42
MCV 78.6 fL (81.0-99.0) L 02/08/25 14:42
Plt Count 256 10^3/uL (130-400) 02/08/25 14:42
Absolute Neuts (auto) 9.4 10^3/uL (1.4-6.5) H 02/08/25 14:42
Sodium 135 mmol/L (135-145) 02/08/25 14:42
Potassium 4.7 mmol/L (3.5-5.1) 02/08/25 14:42
Chloride 107 mmol/L (98-107) 02/08/25 14:42
Carbon Dioxide 19 mmol/L (22-30) L 02/08/25 14:42
BUN 12 mg/dl (7-17) 02/08/25 14:42
Creatinine 0.7 mg/dL (0.6-1.0) 02/08/25 14:42
Calcium 9.7 mg/dl (8.4-10.2) 02/08/25 14:42
Total Bilirubin 0.8 mg/dl (0.2-1.3) 02/08/25 14:42
AST 92 U/L (14-36) H 02/08/25 14:42
ALT 45 U/L (0-35) H 02/08/25 14:42
Alkaline Phosphatase 105 U/L (38-126) 02/08/25 14:42
Lipase 1160 U/L (23-300) H* 02/08/25 14:42
Diagnostic Image Results:
01/22/25 CT Abd/pel W Iv And Oral Contr
IMPRESSION: Status post cholecystectomy with no evidence for biliary ductal dilation.
The pancreas appears within normal limits by CT in this patient with an elevated lipase value.
Hepatomegaly.
The appendix appears normal. No evidence for bowel obstruction or free intraperitoneal air.
Evidence of previous gastric sleeve surgery..
02/13/25 MRCP
History of previous cholecystectomy. No biliary ductal dilatation. No intraluminal filling defect.
No significant peripancreatic stranding to suggest pancreatitis.
No significant free fluid within the abdomen. Small amount of pleural fluid bilaterally.
Evidence of previous gastric sleeve. Hepatomegaly.
Prior GI Procedures:
EGD: Dr. Carrero 02/06/25 for anemia work up with EGD- regular Z line, health appearing gastric sleeve patchy inflammation gastric antrum, single angiodysplastic lesion without bleeding in second portion of duodenum teated with heater probe bx
not reviewed.
Colonoscopy: Dr. Carrero 02/06/25 with normal colon and TI
Assessment / Plan
-
Pt is a 35yo with hx obesity with prior gastric sleeve 2021, michelle 2022, iron deficiency, hypercholesterolemia, fatty liver, depression/anxiety with multiple prior admission with pancreatitis. She had admission in 2023 then 01/22/25- 01/25/25 with
admission with concern for ETOH related pancreatitis and now returns with abdominal pain. CT last admission with prior michelle, pancreas appears normal, HM, normal appendix and prior gastric sleeve. In review with patient she is concerned ETOH not
related. She admits to several drinks for her birthday but denies chronic use and last ETOH as 1 month prior. She follows with Dr. Carrero at [facility]. She recently completed EGD/colon with Dr. Carrero 02/06 for anemia work up with EGD-
regular Z line, health appearing gastric sleeve patchy inflammation gastric antrum, single angiodysplastic lesion without bleeding in second portion of duodenum and colon with normal colon and TI. Plan was for capsule next and she did review for
possible sphincter of Isaiah dysfunction. She has had 2 hospital admission and several ER visits for similar symptoms. On admission noted with WBC 12.8, hbg 14.6, platelet 256, tish 0.. AST 92, ALT 45, alk phos 105, lipase 1160. Triglcyerides normal
last admission. IGG4 normal in 2023.
-elevated lipase
-leukocytosis
-recent admission with concern for ETOH pancreatitis
-recent EGD/colon for SHAMA noted single angiodysplastic lesion with rx with heater probe
-hx prior iron infusion for iron deficiency
other med problems:
-obesity with prior gastric sleeve
-michelle 2022
-hypercholesterolemia
-fatty liver
-depression/anxiety
PLAN:
etiology of abdominal pain with lipase elevation related to ETOH though pt declines excessive use, concern for sphincter of isaiah dysfunction, gastric sleeve related but appear vs other
no pancreatic inflammation noted on recent CT
will check MRI with MRCP
trend labs
NPO advance diet as tolerated
prior TG and IGG4 neg
cont IVF
pain control
OP follow up with Dr. Carrero [facility] known GI vs if pt want second opinion eval for SOD follow up with Dr. Barton outpatient
completed ETOH abstinence
-
-
Thank you for consultation and allowing me to participate in the patient's care. Please call the business consult GI physician during the after hours with any questions or concerns.
[2025-02-08 17:31] LABS: Urine Albumin 2+ (Neg - Trace); Urine Bilirubin Negative (Negative); Urine Character Clear (Clear); Urine Color Yellow; Urine Glucose Negative (Negative); Urine Ketone Negative (Negative); Urine Leukocyte 1+ (Negative); Urine Nitrite Negative (Negative); Urine Occult Blood Negative (Negative); Urine Urobilinogen Negative (Neg - 1+)
[2025-02-08] MEDS: LR 1000 IV (18:09)
--- NOTE | 2025-02-08 18:44 | PTCARENOTE ---
pt when she was ~23 she was hospitalized for a harming herself, she has never tried to harm herself again nor does she wish to today but the algorithm triggers a one to one. TT with Dr. Decker to discuss. She is not a risk and does not require a
one to one.
[2025-02-08 19:23] LABS: Urine Red Blood Cell 0-2 /HPF (0-2); Urine Squamous Cell 21-25 /LPF (Few); Urine White Cell 0-2 /HPF (0-5)
[2025-02-08] MEDS: HEPARIN 5000 UNITS SC (20:09)
[2025-02-08] MEDS: XANAX 2 MG PO (21:05)
[2025-02-08] MEDS: PROZAC 40 MG PO (21:05)
[2025-02-08] MEDS: URSO 500 MG PO (21:06)
[2025-02-09] MEDS: ZOFRAN 4 MG IV ×2 (01:10→17:29)
[2025-02-09] MEDS: LR 1000 IV ×4 (01:10→23:49)
[2025-02-09] MEDS: DILAUDID 0.5 MG IV ×6 (01:10→21:29)
[2025-02-09] MEDS: MYLICON 80 MG PO (04:06)
[2025-02-09 07:26] VITALS: BP 106/62
--- NOTE | 2025-02-09 08:01 | W.PN.HOSP.TC ---
Today's Communication/Plan
-
See plan, advance diet
Assessment / Plan
Assessment / Plan
Physical Exam
General: Well Developed, Well Nourished and No Apparent Distress
HEENT: Normocephalic, Moist mucous membranes and Atraumatic
Respiratory: Clear to Auscultation Bilaterally
Cardiac: S1/S2 and Regular Rhythm
GI: Soft, Non Distended, Normal Bowel Sounds and Tender
Musculoskeletal: No Cyanosis and No Edema
Skin: Warm. Dry.
Neuro: AAOx3. Nonfocal/grossly intact
Assessment/Plan
Admitted on 02/08/25: 35-year-old female with past medical history of recurrent alcoholic pancreatitis, cholecystectomy, anxiety, cervical cyst, obesity, hiatal hernia repair, gastric sleeve, nicotine use disorder, presented with upper abdominal
pain radiating to the back, on the day of presentation, with nausea without vomiting. Per patient, it felt very similar to prior episodes of pancreatitis. She has been having irregular bowel movements. Denied fevers or chills. Patient was admitted 2
weeks, prior to presentation, for acute pancreatitis attributed to alcohol at that time. She denied drinking any alcohol after her recent admission. A few days after, she went home after the recent admission she started to have worsening abdominal
pain which got better somewhat but then pain came back.
#Abdominal Pain of Unknown Etiology
-Per GI, not pancreatitis or sphincter of Oddi dysfunction
-Lipase 1160
-CT abdomen pelvis shows normal-appearing pancreas, hepatomegaly
-Previously attributed to alcohol but unclear what the trigger is this time
-Normal triglycerides last time
-Low fat diet
-IV fluids
-Zofran, Dilaudid
-Continue dicyclomine, Protonix
-GI consulted
-Patient will get an appointment with Dr. Ryan Lainez at [facility] this upcoming 02/11/25
#Elevated transaminases, suspected fatty liver
-Patient follows up with Dr. Colvin at [facility]
History of cholelithiasis status post cholecystectomy
-Continue ursodiol
Anxiety
-Continue fluoxetine, alprazolam
Cervical cyst
Obesity
Hiatal hernia repair
History of gastric sleeve
Vaping history
Full code
DVT prophylaxis�heparin
Anticipated Discharge: 24 - 48 hours
Subjective/Interval History
-
Date of Service: February 09, 2025
Patient was seen and examined. She had significant abdominal pain overnight, with no bowel movements.
Objective Data
-
Labs:
Laboratory Results
02/09/25
07:19
WBC Pending
Hgb Pending
Hct Pending
Plt Count Pending
Sodium Pending
Potassium Pending
Chloride Pending
Carbon Dioxide Pending
BUN Pending
Creatinine Pending
Glucose Pending
Calcium Pending
Total Bilirubin Pending
AST Pending
ALT Pending
Alkaline Phosphatase Pending
Vital Signs:
Vital Signs
Temp Pulse Resp BP Pulse Ox
98.0 F 72 16 106/62 97
02/09/25 07:26 02/09/25 07:26 02/09/25 07:26 02/09/25 07:26 02/09/25 07:26
I&O
02/08/25 02/09/25 02/10/25
06:59 06:59 06:59
Intake Total 1200 / 1200
Balance 1200 / 1200
[2025-02-09] MEDS: VITAMIN B-12 1000 MCG PO (08:02)
[2025-02-09] MEDS: URSO 1000 MG PO (08:03)
[2025-02-09] MEDS: HEPARIN 5000 UNITS SC ×2 (08:03→20:26)
[2025-02-09] MEDS: PROTONIX 40 MG PO (08:03)
[2025-02-09 08:19] LABS: % Basophils 1.1 % (0-2); % Eosinophils 17.1 % (0-6); % Immature Granulocytes 0.1 % (0-0.5); % Lymphocytes 34.6 % (20.5-51.1); % Neutrophils 40.1 % (42.2-75.2); Absolute Basophils 0.1 10^3/uL (0-0.2); Absolute Eosinophils 1.2 10^3/uL (0-0.7); Absolute Lymphocytes 2.5 10^3/uL (1.2-3.4); Absolute Monocytes 0.5 10^3/uL (0.1-0.6); Absolute Neutrophils 2.9 10^3/uL (1.4-6.5); Hematocrit 37.4 % (37.0-47.0); Hemoglobin 12.1 g/dL (12.0-16.0); Mean Corp Hgb Conc. 32.4 g/dL (33.0-37.0); Mean Corpuscular Hgb 26.5 pg (27.0-31.0); Mean Corpuscular Volume 81.8 fL (81.0-99.0); Mean Platelet Volume 12.2 fL (7.4-10.4); Nucleated Red Blood Cells % 0 %; Platelet Count 213 10^3/uL (130-400); Red Blood Cell Count 4.57 10^6/uL (4.20-5.40); Red Cell Dist. Width 20.4 % (11.5-14.5); White Blood Cell Count 7.1 10^3/uL (4.8-10.8)
[2025-02-09 09:30] LABS: ALT (SGPT) 48 U/L (0-35); AST (SGOT) 36 U/L (14-36); Albumin 3.5 g/dl (3.5-5.0); Alkaline Phosphatase 96 U/L (38-126); Blood Urea Nitrogen 10 mg/dl (7-17); Calcium 8.8 mg/dl (8.4-10.2); Carbon Dioxide 26 mmol/L (22-30); Chloride 104 mmol/L (98-107); Estimated Creatinine Clearance > 125 ml/min; Glucose 81 mg/dl (70-99); Potassium 4.6 mmol/L (3.5-5.1); Sodium 135 mmol/L (135-145); Total Bilirubin 0.7 mg/dl (0.2-1.3); Total Protein 5.9 g/dl (6.3-8.2); eGFR > 60.00
--- NOTE | 2025-02-09 13:24 | W.PN.GI.CBS2 ---
Today's Communication / Plan
-
-Abdominal pain, elevated lipase , no radiologic evidence of pancreatitis on recent CT scan early January.
Unclear etiology for abdominal pain.
No evidence of pancreatitis, retained stones in the bile duct on MRI of the abdomen with MRCP.
Denies any recent alcohol use, herbal supplements. No recent new medication. Okay to advance to low-fat diet
she will benefit from consultation with pancreatic specialist.
Does not meet Deniz criteria for sphincter of dysfunction.
Patient's sister is a nurse practitioner with Dr. Ryan Lainez at [place], she is going to get an appointment with him for this coming Tuesday.
-Elevated transaminases, likely from fatty liver.
She follows up with Dr. Colvin at [facility]. As per patient, she had workup for elevated liver enzymes and she has got a follow-up with them again.
-History of anemia, currently hemoglobin stable. They can follow-up with Dr. Colvin as outpatient.
Assessment / Plan
-
Pt is a 35yo with hx obesity with prior gastric sleeve 2021, michelle 2022, iron deficiency, hypercholesterolemia, fatty liver, depression/anxiety with multiple prior admission with pancreatitis. She had admission in 2023 then 01/22/25- 01/25/25 with
admission with concern for ETOH related pancreatitis and now returns with abdominal pain. CT last admission with prior michelle, pancreas appears normal, HM, normal appendix and prior gastric sleeve. In review with patient she is concerned ETOH not
related. She admits to several drinks for her birthday but denies chronic use and last ETOH as 1 month prior. She follows with Dr. Carrero at [facility]. She recently completed EGD/colon with Dr. Carrero 02/06 for anemia work up with EGD-
regular Z line, health appearing gastric sleeve patchy inflammation gastric antrum, single angiodysplastic lesion without bleeding in second portion of duodenum and colon with normal colon and TI. Plan was for capsule next and she did review for
possible sphincter of Isaiah dysfunction. She has had 2 hospital admission and several ER visits for similar symptoms. On admission noted with WBC 12.8, hbg 14.6, platelet 256, tish 0.. AST 92, ALT 45, alk phos 105, lipase 1160. Triglcyerides normal
last admission. IGG4 normal in 2023.
-elevated lipase
-leukocytosis
-recent admission with concern for ETOH pancreatitis
-recent EGD/colon for SHAMA noted single angiodysplastic lesion with rx with heater probe
-hx prior iron infusion for iron deficiency
other med problems:
-obesity with prior gastric sleeve
-michelle 2022
-hypercholesterolemia
-fatty liver
-depression/anxiety
MRI/MRCP 02/09/25-No MRCP evidence for choledocholithiasis. No bile duct dilatation. No significant peripancreatic inflammation or loculated fluid collection by MRI
PLAN:
-Abdominal pain, elevated lipase , no radiologic evidence of pancreatitis on recent CT scan early January.
Unclear etiology for abdominal pain.
No evidence of pancreatitis, retained stones in the bile duct on MRI of the abdomen with MRCP.
Denies any recent alcohol use, herbal supplements. No recent new medication. Okay to advance to low-fat diet
she will benefit from consultation with pancreatic specialist.
Does not meet [place] criteria for sphincter of dysfunction.
Patient's sister is a nurse practitioner with Dr. Ryan Laienz at [place], she is going to get an appointment with him for this coming Tuesday.
-Elevated transaminases, likely from fatty liver.
She follows up with Dr. Colvin at [facility]. As per patient, she had workup for elevated liver enzymes and she has got a follow-up with them again.
-History of anemia, currently hemoglobin stable. They can follow-up with Dr. Colvin as outpatient.
Subjective
Subjective
Date of Service: February 09, 2025
Patient reports episode of abdominal pain overnight again, significant.
No bowel movements.
Objective
Data Reviewed
Laboratory Data:
Laboratory Results
02/09/25 07:19
02/09/25 07:19
Laboratory Results
Total Bilirubin 0.7 mg/dl (0.2-1.3) 02/09/25 07:19
AST 36 U/L (14-36) 02/09/25 07:19
ALT 48 U/L (0-35) H 02/09/25 07:19
Alkaline Phosphatase 96 U/L (38-126) 02/09/25 07:19
Lipase 1160 U/L (23-300) H* 02/08/25 14:42
Vital Signs and I&O:
Vital Signs
Temp Pulse Resp BP Pulse Ox
98.0 F 72 16 106/62 97
02/09/25 07:26 02/09/25 07:26 02/09/25 07:26 02/09/25 07:26 02/09/25 07:26
I&O
02/08/25 02/09/25 02/10/25
06:59 06:59 06:59
Intake Total 1200 / 1200
Balance 1200 / 1200
Physical Exam
Physical Exam
GI: Soft and Tender (Discomfort on palpation of mid abdomen)
[2025-02-09 15:00] VITALS: BP 127/72
--- NOTE | 2025-02-09 15:28 | CM ---
Initial assessment completed
Pt reports she lives alone in an apartment; no [facility], FF set up
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
DME - [employer]
HH - denies past hx
Has ride at d/c
PCP - Rhianna Dats
pharm - [facility]
Plan - anticipate home no needs
[2025-02-09] MEDS: XANAX 2 MG PO (21:29)
[2025-02-09] MEDS: URSO 500 MG PO (21:29)
[2025-02-09] MEDS: PROZAC 40 MG PO (21:29)
[2025-02-09 23:11] VITALS: BP 102/61
[2025-02-10] MEDS: BENTYL 20 MG PO ×2 (01:21→08:52)
[2025-02-10] MEDS: DILAUDID 0.5 MG IV ×3 (01:31→10:07)
[2025-02-10] MEDS: MYLICON 80 MG PO (06:04)
[2025-02-10] MEDS: LR 1000 IV (06:19)
[2025-02-10 07:29] VITALS: BP 106/64
[2025-02-10 08:24] LABS: ALT (SGPT) 47 U/L (0-35); AST (SGOT) 30 U/L (14-36); Albumin 3.1 g/dl (3.5-5.0); Alkaline Phosphatase 91 U/L (38-126); Blood Urea Nitrogen 7 mg/dl (7-17); Calcium 8.7 mg/dl (8.4-10.2); Carbon Dioxide 26 mmol/L (22-30); Chloride 105 mmol/L (98-107); Estimated Creatinine Clearance > 125 ml/min; Glucose 83 mg/dl (70-99); Lipase 57 U/L (23-300); Potassium 4.5 mmol/L (3.5-5.1); Sodium 136 mmol/L (135-145); Total Bilirubin 0.7 mg/dl (0.2-1.3); Total Protein 5.4 g/dl (6.3-8.2); eGFR > 60.00
[2025-02-10 08:33] LABS: % Basophils 0.7 % (0-2); % Eosinophils 15.2 % (0-6); % Immature Granulocytes 0.3 % (0-0.5); % Lymphocytes 39.7 % (20.5-51.1); % Monocytes 6.7 % (1.7-9.3); % Neutrophils 37.4 % (42.2-75.2); Absolute Basophils 0.1 10^3/uL (0-0.2); Absolute Eosinophils 1.2 10^3/uL (0-0.7); Absolute Monocytes 0.5 10^3/uL (0.1-0.6); Absolute Neutrophils 2.8 10^3/uL (1.4-6.5); Hematocrit 37.5 % (37.0-47.0); Hemoglobin 11.9 g/dL (12.0-16.0); Mean Corp Hgb Conc. 31.7 g/dL (33.0-37.0); Mean Corpuscular Hgb 26.2 pg (27.0-31.0); Mean Corpuscular Volume 82.6 fL (81.0-99.0); Mean Platelet Volume 12.3 fL (7.4-10.4); Nucleated Red Blood Cells % 0 %; Platelet Count 209 10^3/uL (130-400); Red Blood Cell Count 4.54 10^6/uL (4.20-5.40); Red Cell Dist. Width 20.2 % (11.5-14.5); White Blood Cell Count 7.6 10^3/uL (4.8-10.8)
[2025-02-10] MEDS: PROTONIX 40 MG PO (08:44)
[2025-02-10] MEDS: URSO 1000 MG PO (08:44)
[2025-02-10] MEDS: VITAMIN B-12 1000 MCG PO (08:45)
[2025-02-10] MEDS: HEPARIN 5000 UNITS SC (08:45)
--- NOTE | 2025-02-10 10:49 | CM ---
Met with pt
Poss d/c today
Reports sister will transport home or she will call an Uber
Plan - home no needs
--- NOTE | 2025-02-10 10:56 | W.PN.GI.CBS2 ---
Today's Communication / Plan
-
-Abdominal pain, elevated lipase , no radiologic evidence of pancreatitis on recent CT scan early January.
Unclear etiology for abdominal pain.
Lipase completely normalized
No evidence of pancreatitis, retained stones in the bile duct on MRI of the abdomen with MRCP.
Denies any recent alcohol use, herbal supplements. No recent new medication. Okay to advance to low-fat diet
Tolerating low-fat diet.
Does not meet [place] criteria for sphincter of dysfunction.
she will benefit from consultation with pancreatic specialist.Patient's sister is a nurse practitioner with Dr. Ryan Lainez at [facility], she is going to get an appointment with him for this coming Tuesday. She can be discharged home to follow-up
with [facility] tomorrow but suggested sticking to a low-fat diet and okay to take dicyclomine every 8 hours until seen by Dr. Lainez tomorrow .
-Elevated transaminases, likely from fatty liver.
She follows up with Dr. Colvin at [facility]. As per patient, she had workup for elevated liver enzymes and she has got a follow-up with them again.
-History of anemia, currently hemoglobin stable. They can follow-up with Dr. Colvin as outpatient.
Assessment / Plan
-
Pt is a 35yo with hx obesity with prior gastric sleeve 2021, michelle 2022, iron deficiency, hypercholesterolemia, fatty liver, depression/anxiety with multiple prior admission with pancreatitis. She had admission in 2023 then 01/22/25- 01/25/25 with
admission with concern for ETOH related pancreatitis and now returns with abdominal pain. CT last admission with prior michelle, pancreas appears normal, HM, normal appendix and prior gastric sleeve. In review with patient she is concerned ETOH not
related. She admits to several drinks for her birthday but denies chronic use and last ETOH as 1 month prior. She follows with [facility] at [facility]. She recently completed EGD/colon with Dr. Carrero 02/06 for anemia work up with EGD-
regular Z line, health appearing gastric sleeve patchy inflammation gastric antrum, single angiodysplastic lesion without bleeding in second portion of duodenum and colon with normal colon and TI. Plan was for capsule next and she did review for
possible sphincter of Isaiah dysfunction. She has had 2 hospital admission and several ER visits for similar symptoms. On admission noted with WBC 12.8, hbg 14.6, platelet 256, tish 0.. AST 92, ALT 45, alk phos 105, lipase 1160. Triglcyerides normal
last admission. IGG4 normal in 2023.
-elevated lipase
-leukocytosis
-recent admission with concern for ETOH pancreatitis
-recent EGD/colon for SHAMA noted single angiodysplastic lesion with rx with heater probe
-hx prior iron infusion for iron deficiency
other med problems:
-obesity with prior gastric sleeve
-michelle 2022
-hypercholesterolemia
-fatty liver
-depression/anxiety
MRI/MRCP 02/09/25-No MRCP evidence for choledocholithiasis. No bile duct dilatation. No significant peripancreatic inflammation or loculated fluid collection by MRI
PLAN:
-Abdominal pain, elevated lipase , no radiologic evidence of pancreatitis on recent CT scan early January.
Unclear etiology for abdominal pain.
Lipase completely normalized
No evidence of pancreatitis, retained stones in the bile duct on MRI of the abdomen with MRCP.
Denies any recent alcohol use, herbal supplements. No recent new medication. Okay to advance to low-fat diet
Tolerating low-fat diet.
Does not meet [place] criteria for sphincter of dysfunction.
she will benefit from consultation with pancreatic specialist.Patient's sister is a nurse practitioner with Dr. Ryan Lainez at [facility], she is going to get an appointment with him for this coming Tuesday. She can be discharged home to follow-up
with [facility] tomorrow but suggested sticking to a low-fat diet and okay to take dicyclomine every 8 hours [address] seen by Dr. Lainez tomorrow .
-Elevated transaminases, likely from fatty liver.
She follows up with [facility]. As per patient, she had workup for elevated liver enzymes and she has got a follow-up with them again.
-History of anemia, currently hemoglobin stable. They can follow-up with Dr. Colvin as outpatient.
Subjective
Subjective
Date of Service: February 10, 2025
Patient continues to report abdominal spasms and reports loose stool this morning but able to tolerate low-fat diet
Objective
Data Reviewed
Laboratory Data:
Laboratory Results
02/10/25 06:40
02/10/25 06:40
Laboratory Results
Total Bilirubin 0.7 mg/dl (0.2-1.3) 02/10/25 06:40
AST 30 U/L (14-36) 02/10/25 06:40
ALT 47 U/L (0-35) H 02/10/25 06:40
Alkaline Phosphatase 91 U/L (38-126) 02/10/25 06:40
Lipase 57 U/L (23-300) 02/10/25 06:40
Vital Signs and I&O:
Vital Signs
Temp Pulse Resp BP Pulse Ox
98.1 F 71 16 106/64 97
02/10/25 07:29 02/10/25 07:29 02/10/25 07:29 02/10/25 07:29 02/10/25 07:29
I&O
02/09/25 02/10/25 02/11/25
06:59 06:59 06:59
Intake Total 1200 / 1200 2520 / 2520
Balance 1200 / 1200 2520 / 2520
Physical Exam
Physical Exam
GI: Soft, Non Distended and Tender (Discomfort on palpation in the mid abdomen)
--- NOTE | 2025-02-10 10:56 | W.PN.HOSP.TC ---
Addendum entered and electronically signed by Jose Alejandro Cintron MD 02/11/25 21:46:
Yes, abdominal pain is possibly related to/associated with/due to fatty liver.
Original Note:
Today's Communication/Plan
-
Discharge today
Assessment / Plan
Assessment / Plan
Physical Exam
General: Not in acute distress
HEENT: Normocephalic, Moist mucous membranes and Atraumatic
Respiratory: Clear to Auscultation Bilaterally
Cardiac: S1/S2 and Regular Rhythm
GI: Soft, Non Distended, Normal Bowel Sounds and Tender
Musculoskeletal: No Cyanosis and No Edema
Skin: Warm. Dry.
Neuro: AAOx3. Nonfocal/grossly intact
Assessment/Plan
Admitted on 02/08/25: 35-year-old female with past medical history of recurrent alcoholic pancreatitis, cholecystectomy, anxiety, cervical cyst, obesity, hiatal hernia repair, gastric sleeve, nicotine use disorder, presented with upper abdominal
pain radiating to the back, on the day of presentation, with nausea without vomiting. Per patient, it felt very similar to prior episodes of pancreatitis. She has been having irregular bowel movements. Denied fevers or chills. Patient was admitted 2
weeks, prior to presentation, for acute pancreatitis attributed to alcohol at that time. She denied drinking any alcohol after her recent admission. A few days after, she went home after the recent admission she started to have worsening abdominal
pain which got better somewhat but then pain came back.
#Abdominal Pain of Unknown Etiology
#Elevated Lipase - RESOLVED
-Per GI, not pancreatitis nor Sphincter of Oddi dysfunction
-Lipase 1160
-CT abdomen pelvis shows normal-appearing pancreas, hepatomegaly
-Previously attributed to alcohol but unclear what the trigger is this time
-Normal triglycerides last time
-Low fat diet
-IV fluids
-Zofran, Dilaudid
-Continue to take dicyclomine every [address] Dr[address] Ryan Lainez (see below) tomorrow
-Continue Protonix
-GI consulted
-Patient will get an appointment with Dr. Ryan Lainez at [facility] this upcoming 02/11/25. Patient will benefit from evaluation with a pancreatic specialist.
#Elevated Eosinophils/Eosinophilia
-Outpatient follow-up with outpatient physicians
#Elevated transaminases, suspected fatty liver
-Patient follows up with Dr. Colvin at [facility]
History of cholelithiasis status post cholecystectomy
-Continue ursodiol
Anxiety
-Continue fluoxetine, alprazolam
Cervical cyst
Obesity
Hiatal hernia repair
History of gastric sleeve
Vaping history
Full code
DVT prophylaxis�heparin
More than 30 minutes spent in discharge including
Final examination of the patient
Summarizing hospital stay
Instructions for continuing care to all relevant caregivers
Preparation of discharge records, prescriptions, and referral forms
Total time spent (in minutes): 35
Anticipated Discharge: Today
Subjective/Interval History
-
Date of Service: February 10, 2025
Patient was seen and examined. She is tolerating her low fat diet but continues to have abdominal crampy pain and loose stools.
Objective Data
-
Labs:
Laboratory Results
02/10/25
06:40
WBC 7.6
Hgb 11.9 L
Hct 37.5
Plt Count 209
Sodium 136
Potassium 4.5
Chloride 105
Carbon Dioxide 26
BUN 7
Creatinine 0.8
Glucose 83
Calcium 8.7
Total Bilirubin 0.7
AST 30
ALT 47 H
Alkaline Phosphatase 91
Vital Signs:
Vital Signs
Temp Pulse Resp BP Pulse Ox
98.1 F 71 16 106/64 97
02/10/25 07:29 02/10/25 07:29 02/10/25 07:29 02/10/25 07:29 02/10/25 07:29
I&O
02/09/25 02/10/25 02/11/25
06:59 06:59 06:59
Intake Total 1200 / 1200 2520 / 2520
Balance 1200 / 1200 2520 / 2520
--- NOTE | 2025-02-10 13:32 | W.DCSUMMARY ---
Discharge Summary
Discharge Data
Date of Admission: 02/08/25
Date of Discharge: 02/10/25
Total time spent discharging patient (in min): 35
-
Pending Results: No
Hospital Course
35-year-old female with past medical history of recurrent alcoholic pancreatitis, cholecystectomy, anxiety, cervical cyst, obesity, hiatal hernia repair, gastric sleeve and nicotine use disorder, presented with abdominal pain. Patient's initial
Lipase was elevated and CT imaging did not show pancreatitis; patient was made to be N.P.O. and started on intravenous fluids. Gastroenterology was consulted. MRI of the abdomen with MRCP did not show any pancreatitis or any stones in the bile duct.
Patient denied any recent alcohol use, herbal supplements, or any new medications. Patient was doing better and would follow-up with Dr. Ryan Lainez at [facility] following discharge.
Discharge Plan
-
Patient Disposition: Home (Routine Discharge)
Discharge Diagnosis/Procedures: #Abdominal Pain of Uncertain Etiology
#Elevated Lipase - RESOLVED
#Elevated Eosinophils/Eosinophilia
#Elevated transaminases, suspected fatty liver
#Mildly Enlarged Liver on MRI imaging
#History of cholelithiasis status post cholecystectomy
#Anxiety
#Cervical cyst
#Obesity
#Hiatal hernia repair
#History of gastric sleeve
#Vaping history
Condition: Fair
Diet: Low Fat
Activity Restrictions/Additional Instructions:
Please follow-up with [facility] physician Dr. Ryan Lainez as discussed
Referrals:
Rhianna Jason CRNP [Family Provider] - in less than 1 week
Prescriptions:
Continued
fluoxetine 40 mg Capsule
40 mg PO HS
alprazolam 1 mg Tablet
1 mg PO DAILYPRN PRN (Reason: anxiety)
alprazolam 1 mg tablet
2 mg PO HS
cyanocobalamin (vitamin B-12) 1,000 mcg Tablet
1,000 mcg PO DAILY
dicyclomine 20 mg Tablet
20 mg PO TIDPRN PRN (Reason: abd cramping)
fluoxetine 10 mg Capsule
10 mg PO HSPRN PRN (Reason: anxiety)
ursodiol 500 mg Tablet
1,000 mg PO DAILY
ursodiol 500 mg Tablet
500 mg PO HS
pantoprazole 40 mg tablet,delayed release (DR/EC)
40 mg PO DAILY Qty: 30 0RF
simethicone 80 mg Tablet,Chewable
80 mg PO DAILYPRN PRN (Reason: gas pains)
Discharge Orders:
Discharge Patient (As Directed); Ordered 02/10/25
Ordered By: Jose Alejandro Cintron
Discharge Date and Time
Discharge Date/Time: 02/10/25 14:50
Print Language: NIGERIEN
[2025-02-10 14:00] VITALS: BP 113/69
--- NOTE | 2025-02-11 13:20 | PN.CDI ---
CDI
- -
CDI:
Physician Documentation Request
Admit Date: 02/08/25 16:42
Dear Doctor Abdulaziz,
Patient presented to ED with concerns for upper abdominal pain associated nausea.
Pancreatitis and Sphincter of Oddi dysfunction ruled out. Progress notes state 'unclear etiology of abdominal pain'
CT abdomen of the pelvis shows hepatomegaly. There was elevated Transaminases likely from fatty liver per GI notes.
Patient was discharged 02/10 tolerating low fat dies but continues to have abdominal crampy pain.
Please clarify if a relationship exist between these conditions:
Yes, abdominal pain is related to/associated with/due to fatty liver
No, abdominal pain is not related to/associated with/due to fatty liver
Unable to determine
Use of terms such as suspected, likely, concern for, or probable (associated with a specific diagnosis that is being evaluated, monitored, or treated as if it exists) are acceptable and can be coded in the inpatient setting, when documented at the
time of discharge.
Thank you,
Johana Wu RN, BSN
CDI Specialist
tiger text
Please use your independent medical judgment in providing your response.
--- NOTE | 2025-02-11 13:28 | PN.CDI ---
CDI
- -
CDI:
Physician Documentation Request
Admit Date: 02/08/25 16:42
Dear Doctor Abdulaziz,
Patient presented to ED with concerns for upper abdominal pain associated nausea.
Pancreatitis and Sphincter of Oddi dysfunction ruled out. Progress notes state 'unclear etiology of abdominal pain'
Previously had recurrent alcoholic pancreatitis.
CT abdomen of the pelvis shows hepatomegaly. There was elevated Transaminases likely from fatty liver per GI notes.
Patient was discharged 02/10 tolerating low fat dies but continues to have abdominal crampy pain.
Please clarify if a relationship exist between these conditions:
Yes, abdominal pain is related to/associated with/due to fatty liver- (please indicated if suspected alcohol related/vs non alcoholic fatty liver)
No, abdominal pain is not related to/associated with/due to fatty liver
Unable to determine
Use of terms such as suspected, likely, concern for, or probable (associated with a specific diagnosis that is being evaluated, monitored, or treated as if it exists) are acceptable and can be coded in the inpatient setting, when documented at the
time of discharge.
Thank you,
Johana Wu RN, BSN
CDI Specialist
tiger text
Please use your independent medical judgment in providing your response.
== END 2025-02-10 14:50 | disposition home or self-care (01) | DRG 442 ==
LOC: 2 SOUTH 16:42
PROVIDERS: Physician Assistant; ADMITTING PHYSICIAN Hospitalist; ATTENDING PHYSICIAN Hospitalist; CONSULT PHYSICIAN Internal Medicine Gastroenterology; EMERGENCY PHYSICIAN Emergency Medicine; FAMILY PHYSICIAN Nurse Practitioner Family
DX: K76.0 Fatty (change of) liver, not elsewhere classified (principal); Z68.41 Body mass index [BMI] 40.0-44.9, adult; R10.9 Unspecified abdominal pain; Z90.49 Acquired absence of other specified parts of digestive tract; F41.9 Anxiety disorder, unspecified; F32.A Depression, unspecified; E66.9 Obesity, unspecified; E78.00 Pure hypercholesterolemia, unspecified; F17.290 Nicotine dependence, other tobacco product, uncomplicated; K29.70 Gastritis, unspecified, without bleeding; K31.819 Angiodysplasia of stomach and duodenum without bleeding; K59.00 Constipation, unspecified; Z98.84 Bariatric surgery status
CPT/HCPCS: 74183; 80053; 81003; 81015; 83605; 83690; 85025; 87086; 96374; 96375; 99285; 99406; A9575

== ENCOUNTER 2025-03-15 02:00 | Emergency (ER) | payer OTHER, SELFPAY ==
[2025-03-15 02:04] VITALS: BP 117/87
[2025-03-15 02:38] VITALS: BP 123/79
[2025-03-15 02:39] VITALS: BMI 39.9
[2025-03-15 03:00] VITALS: BP 116/74
[2025-03-15] MEDS: ZOFRAN 4 MG IV (03:09)
[2025-03-15] MEDS: TORADOL 15 MG IV ×2 (03:10→06:03)
[2025-03-15 03:28] LABS: % Basophils 0.6 % (0-2); % Eosinophils 1.7 % (0-6); % Immature Granulocytes 0.2 % (0-0.5); % Lymphocytes 31.6 % (20.5-51.1); % Monocytes 6.8 % (1.7-9.3); % Neutrophils 59.1 % (42.2-75.2); Absolute Basophils 0.1 10^3/uL (0-0.2); Absolute Eosinophils 0.2 10^3/uL (0-0.7); Absolute Lymphocytes 3.3 10^3/uL (1.2-3.4); Absolute Monocytes 0.7 10^3/uL (0.1-0.6); Absolute Neutrophils 6.2 10^3/uL (1.4-6.5); Hematocrit 39.3 % (37.0-47.0); Hemoglobin 13.2 g/dL (12.0-16.0); Mean Corp Hgb Conc. 33.6 g/dL (33.0-37.0); Mean Corpuscular Hgb 27.7 pg (27.0-31.0); Mean Corpuscular Volume 82.6 fL (81.0-99.0); Nucleated Red Blood Cells % 0 %; Platelet Count 261 10^3/uL (130-400); Red Blood Cell Count 4.76 10^6/uL (4.20-5.40); Red Cell Dist. Width 16.7 % (11.5-14.5); White Blood Cell Count 10.4 10^3/uL (4.8-10.8)
[2025-03-15 03:51] LABS: ALT (SGPT) 22 U/L (0-35); AST (SGOT) 39 U/L (14-36); Albumin 3.7 g/dl (3.5-5.0); Alkaline Phosphatase 75 U/L (38-126); Amylase 58 U/L (30-110); Blood Urea Nitrogen 13 mg/dl (7-17); Calcium 9.1 mg/dl (8.4-10.2); Carbon Dioxide 24 mmol/L (22-30); Chloride 105 mmol/L (98-107); Estimated Creatinine Clearance 125 ml/min; Glucose 93 mg/dl (70-99); Lipase 79 U/L (23-300); Potassium 3.9 mmol/L (3.5-5.1); Sodium 138 mmol/L (135-145); Total Bilirubin 0.4 mg/dl (0.2-1.3); Total Protein 6.5 g/dl (6.3-8.2); eGFR > 60.00
[2025-03-15 04:00] VITALS: BP 118/68
[2025-03-15 04:12] LABS: Urine Albumin 2+ (Neg - Trace); Urine Bilirubin Negative (Negative); Urine Character Clear (Clear); Urine Color Yellow; Urine Glucose Negative (Negative); Urine Ketone Negative (Negative); Urine Leukocyte 1+ (Negative); Urine Nitrite Negative (Negative); Urine Occult Blood 4+ (Negative); Urine Urobilinogen Negative (Neg - 1+)
[2025-03-15 04:50] LABS: Urine Squamous Cell >30 /LPF (Few)
[2025-03-15 04:51] LABS: Urine Amorphous Seen; Urine Bacteria Many (Negative)
[2025-03-15] MEDS: REGLAN 10 MG IV (04:51)
[2025-03-15] MEDS: BENADRYL 25 MG IV (04:51)
[2025-03-15] MEDS: MAALOX 40 PO (04:52)
[2025-03-15 04:53] LABS: Urine Mucus Moderate
[2025-03-15] MEDS: NSS 1000 IV (04:53)
--- NOTE | 2025-03-15 05:02 | ED.GENMED ---
History of Present Illness
General
Chief Complaint: Abdominal Pain
Source: patient
Exam Limitations: none
Time Seen by Provider: 03/15/25 02:29
Nursing documentation reviewed up to this point in time: agreed with
History of Present Illness
History of Present Illness:
35-year-old female with past medical history of chronic abdominal pain has had extensive workup by outpatient GI with abdominal MRI recent endoscopy colonoscopy without any emergent findings. Sees a physician at [facility] [place]. Today she
had a recurrence of symptoms 1 hour ago upper abdomen described as a wrapping bandlike pain. Had nausea no significant vomiting no changes in bowel movements.
Past History
Past History
ED Past Medical History: None; Negative Asthma, HTN, Hypercholesterolemia or NIDDM
ED Past Surgical History: Cholecystectomy and Other (Gastric sleeve)
Social History
Tobacco: Vaping (Former Cig smoker but now Vaps)
Alcohol: Occasional
Personal: Single
Living: alone
Review of Systems
Review of Systems
Allergies reviewed?: Yes
All Other Systems: ROS reviewed and negative except as documented in HPI and ROS
Phy Exam
Physical Exam
Physical Exam:
GENERAL: Alert , in no apparent distress
EYE: pupils equal and reactive
NECK: Supple, no significant adenopathy.
ENT: o/p clr, mmm.
CARDIAC: Regular rate and rhythm .
LUNGS: Clear breath sounds bilaterally, no acute respiratory distress, no wheezes/rales/rhonchi
ABDOMEN: Soft, without focal tenderness, no r/g, no cvat
NEUROLOGICAL: Alert and oriented, no focal neuro deficits
SKIN: Warm and dry, skin intact.
MUSCULOSKELETAL: No edema, well perfused.
PSYCH: Normal and appropriate interaction.
Course
Orders/Labs/Results
Orders:
Orders
03/15/25 02:44
Amylase Urgent
Comment: ADD ON
Complete Blood Count/With Diff Urgent
Comprehensive Metabolic Panel Urgent
Lipase Urgent
03/15/25 03:01
Ketorolac [Toradol] 15 mg IV NOW STA
Ondansetron Injectable [Zofran] 4 mg IV NOW STA
03/15/25 03:07
Add On- LAB Urgent
Tests Added?: amylase
03/15/25 03:55
Urinalysis Reflex To Culture Urgent
Date Specimen was Collected: 03/15/25
Time Specimen was Collected: 03:54
Urine Microscopic Reflex Cult Urgent
Urine Culture Urgent
MIGUELINA Source: U
Specimen Description:
Date Specimen was Collected: 03/15/25
Time Specimen was Collected: 03:54
03/15/25 04:31
Diphenhydramine [Benadryl] 25 mg IV NOW STA
Mag Hydrox/Al Hydrox/Simeth [Maalox] 30 ml Phenobarb/Hyoscy/Atropine/Scop [] 10 ml PO NOW
Metoclopramide [Reglan] 10 mg IV NOW STA
03/15/25 04:32
0.9% Sodium Chloride 1000 ml [Nss] 1,000 ml IV BOLUS
03/15/25 04:41
Phenobarb/Hyoscy/Atropine/Scop [] 10 ml .ROUTE .STK-MED ONE
03/15/25 04:42
Mag Hydrox/Al Hydrox/Simeth [Maalox] 30 ml .ROUTE .STK-MED ONE
03/15/25 04:47
Phenobarb/Hyoscy/Atropine/Scop [] 10 ml .ROUTE .STK-MED ONE
Abnormal Lab Results
03/15/25 03/15/25
02:44 03:55
RDW 16.7 H %
(11.5-14.5)
MPV 12.0 H fL
(7.4-10.4)
Absolute Monos (auto) 0.7 H 10^3/uL
(0.1-0.6)
AST 39 H U/L
(14-36)
Ur Occult Blood Reflex 4+ A
(Negative)
Leukocyte Esterase Rfl 1+ A
(Negative)
Urine RBC 7-10 A /HPF
(0-2)
Urine Bacteria (Reflex) Many A
(Negative)
Urine Albumin (Reflex) 2+ A
(Neg - Trace)
03/15/25 02:44
03/15/25 02:44
Vital Signs
Initial and Last Documented VS:
Initial Vital Signs
Temp Pulse Resp BP Pulse Ox
97.9 F 92 20 117/87 97
03/15/25 02:04 03/15/25 02:04 03/15/25 02:04 03/15/25 02:04 03/15/25 02:04
Last Documented Vital Signs
Temp Pulse Resp BP Pulse Ox
97.9 F 92 20 118/68 95
03/15/25 02:04 03/15/25 02:04 03/15/25 02:04 03/15/25 04:00 03/15/25 04:45
MDM/Problems Addressed
MDM/Problems Addressed:
35-year-old female presenting to the emergency department today with concerns of ongoing upper abdominal discomfort. Similar to previous episodes has had extensive outpatient workup without any specific explanation. Labs here were obtained without
acute abnormalities. Otherwise patient advised for outpatient GI follow-up. Return precautions given.
*Critical Care Note
Total Time (30-74mins, 75-104mins- exclusive of procedures): Not Applicable
ED Attending Note
-
Portions of this chart may have been created with voice recognition software.� Occasional wrong word or��sound alike� substitutions may have occurred due to the inherent limitations of voice recognition software.
Discharge Plan
Departure
Patient Disposition: Home (Routine Discharge)
Date of Disposition: 03/15/25
Time of Disposition: 05:28
Patient with high blood pressure during this ER visit?: No
Condition: Good
Covid-19: Not Applicable
Discharge Problem:
Abdominal pain
Instructions: Abdominal Pain
Prescriptions:
No Action
fluoxetine 40 mg Capsule
40 mg PO HS
alprazolam 1 mg Tablet
1 mg PO DAILYPRN PRN (Reason: anxiety)
alprazolam 1 mg tablet
2 mg PO HS
cyanocobalamin (vitamin B-12) 1,000 mcg Tablet
1,000 mcg PO DAILY
dicyclomine 20 mg Tablet
20 mg PO TIDPRN PRN (Reason: abd cramping)
fluoxetine 10 mg Capsule
10 mg PO HSPRN PRN (Reason: anxiety)
ursodiol 500 mg Tablet
1,000 mg PO DAILY
ursodiol 500 mg Tablet
500 mg PO HS
pantoprazole 40 mg tablet,delayed release (DR/EC)
40 mg PO DAILY Qty: 30 0RF
simethicone 80 mg Tablet,Chewable
80 mg PO DAILYPRN PRN (Reason: gas pains)
Referrals:
Carlos Houston MD [Family Provider] -
Activity Restrictions/Additional Instructions:
Here you had a reassuring assessment. Please follow closely with your GI team. Return for any worsening, new or concerning symptoms.
Interventions
Interventions:
*Risk Screen - Suicide Last Done: 03/15/25 02:04
*General Assessment Last Done: 03/15/25 02:39
*Neglect/Abuse Screening Last Done: 03/15/25 02:04
*ED- Fall Risk Assessment Last Done: 03/15/25 02:04
*ED COVID-19 Vaccine History Last Done: 03/15/25 02:04
IO-Dreucg-Gwetvzxldr Assessment Last Done: 03/15/25 02:39
Discharge Date and Time
Print Language: CITIZ[place]
[2025-03-15 05:06] VITALS: BP 114/72
[2025-03-15 06:00] VITALS: BP 115/65
== END 2025-03-15 06:18 | disposition home or self-care (01) ==
LOC: EMR 02:00
PROVIDERS: Physician Assistant; EMERGENCY PHYSICIAN Student in an Organized Health Care Education/Training Program; FAMILY PHYSICIAN Internal Medicine Gastroenterology
DX: R10.9 Unspecified abdominal pain (principal); F17.290 Nicotine dependence, other tobacco product, uncomplicated; Z90.49 Acquired absence of other specified parts of digestive tract
CPT/HCPCS: 99283; 96374; 96375; 80053; 81003; 81015; 82150; 83690; 85025; 87086

== ENCOUNTER 2025-04-05 23:52 | Emergency (ER) | payer OTHER, SELFPAY ==
[2025-04-06 00:01] VITALS: BP 102/68
[2025-04-06 02:04] LABS: % Basophils 0.5 % (0-2); % Eosinophils 1.9 % (0-6); % Immature Granulocytes 0.3 % (0-0.5); % Lymphocytes 21.9 % (20.5-51.1); % Monocytes 7.9 % (1.7-9.3); % Neutrophils 67.5 % (42.2-75.2); Absolute Basophils 0.1 10^3/uL (0-0.2); Absolute Eosinophils 0.2 10^3/uL (0-0.7); Absolute Lymphocytes 2.6 10^3/uL (1.2-3.4); Absolute Neutrophils 8.1 10^3/uL (1.4-6.5); Hematocrit 41.4 % (37.0-47.0); Mean Corp Hgb Conc. 33.8 g/dL (33.0-37.0); Mean Corpuscular Hgb 28.2 pg (27.0-31.0); Mean Corpuscular Volume 83.5 fL (81.0-99.0); Mean Platelet Volume 12.1 fL (7.4-10.4); Nucleated Red Blood Cells % 0 %; Platelet Count 258 10^3/uL (130-400); Red Blood Cell Count 4.96 10^6/uL (4.20-5.40); Red Cell Dist. Width 14.8 % (11.5-14.5)
[2025-04-06 02:17] LABS: ALT (SGPT) 109 U/L (0-35); AST (SGOT) 190 U/L (14-36); Albumin 4.2 g/dl (3.5-5.0); Alkaline Phosphatase 89 U/L (38-126); Blood Urea Nitrogen 13 mg/dl (7-17); Calcium 9.3 mg/dl (8.4-10.2); Carbon Dioxide 24 mmol/L (22-30); Chloride 109 mmol/L (98-107); Estimated Creatinine Clearance 113 ml/min; Glucose 92 mg/dl (70-99); Lipase 311 U/L (23-300); Potassium 4.8 mmol/L (3.5-5.1); Sodium 141 mmol/L (135-145); Total Bilirubin 0.5 mg/dl (0.2-1.3); Total Protein 7.3 g/dl (6.3-8.2); eGFR > 60.00
[2025-04-06 03:44] LABS: HCG, Serum Qualitative Screen Negative
[2025-04-06 04:03] VITALS: BP 129/90
--- NOTE | 2025-04-06 04:58 | ED.GENMED ---
History of Present Illness
General
Chief Complaint: Abdominal Pain
Source: patient
Time Seen by Provider: 04/06/25 04:41
History of Present Illness
History of Present Illness:
This patient is a 35-year-old female presents emergency department complaints of abdominal pain that started approximately 10 PM last night and continue. The pain is located mostly on the left upper quadrant and wraps around to the left mid back.
She describes the pain as coming on in 'spasms' that are severe. She did her typical management at home which includes a heating pad, leaning over the bed, and taking antiemetics and oxycodone. The pain continues. This pain is exactly the same as
prior episodes of abdominal pain that she has had in the past. There are no factors or element of the symptoms that are different from prior. Patient has a history of chronic abdominal pain and is under the care of 2 specific separate GI doctors
without a specific etiology yet identified but in the mist of an extensive workup. At times, she will have an elevated lipase but she states that imaging does not demonstrate pancreatic inflammation.
Past History
Past History
ED Past Medical History: GERD, Psychiatric and Other (Chronic abdominal pain, reflux); Negative Asthma, HTN, Hypercholesterolemia or NIDDM
ED Past Surgical History: Cholecystectomy and Other (Gastric sleeve)
Social History
Tobacco: Vaping (Former Cig smoker but now Vaps)
Alcohol: Occasional
Drug: None
Personal: Single
Living: alone
Phy Exam
Physical Exam
Physical Exam:
GENERAL: Alert , in no apparent distress but leans over bed to feel more comfortable
EYE: pupils equal and reactive
NECK: Supple, no significant adenopathy.
ENT: o/p clr, mmm.
CARDIAC: Regular rate and rhythm .
LUNGS: Clear breath sounds bilaterally, no acute respiratory distress, no wheezes/rales/rhonchi
ABDOMEN: Soft, mild left upper quadrant tenderness, no r/g, no cvat
NEUROLOGICAL: Alert and oriented, no focal neuro deficits
SKIN: Warm and dry, skin intact.
MUSCULOSKELETAL: No edema, well perfused.
PSYCH: Normal and appropriate interaction.
Course
Orders/Labs/Results
Orders:
Orders
04/06/25 00:12
IV Insert/Care/Rem.- Treatment PRN
04/06/25 01:54
Complete Blood Count/With Diff Urgent
Comprehensive Metabolic Panel Urgent
HCG, Serum Qualitative Screen Urgent
Lipase Urgent
04/06/25 03:07
Add On- LAB Urgent
Tests Added?: serum hcg
04/06/25 05:03
0.9% Sodium Chloride 500 ml [Nss] 500 ml IV BOLUS
Ketorolac [Toradol] 15 mg IV NOW STA
Ondansetron Injectable [Zofran] 4 mg IV NOW STA
04/06/25 06:11
HYDROmorphone [Dilaudid] 1 mg IV NOW STA
04/06/25 06:18
Urinalysis Reflex To Culture Urgent
Date Specimen was Collected: 04/06/25
Time Specimen was Collected: 00:12
Urine Microscopic Reflex Cult Urgent
Abnormal Lab Results
04/06/25 04/06/25
01:54 06:18
WBC 12.0 H 10^3/uL
(4.8-10.8)
RDW 14.8 H %
(11.5-14.5)
MPV 12.1 H fL
(7.4-10.4)
Absolute Neuts (auto) 8.1 H 10^3/uL
(1.4-6.5)
Absolute Monos (auto) 1.0 H 10^3/uL
(0.1-0.6)
Chloride 109 H mmol/L
(98-107)
AST 190 H U/L
(14-36)
ALT 109 H U/L
(0-35)
Lipase 311 H U/L
(23-300)
Urine Albumin (Reflex) 1+ A
(Neg - Trace)
04/06/25 01:54
04/06/25 01:54
Vital Signs
Initial and Last Documented VS:
Initial Vital Signs
Temp Pulse Resp BP Pulse Ox
98.6 F 73 14 102/68 98
04/06/25 00:01 04/06/25 00:01 04/06/25 00:01 04/06/25 00:01 04/06/25 00:01
Last Documented Vital Signs
Temp Pulse Resp BP Pulse Ox
98.6 F 72 18 104/54 98
04/06/25 00:01 04/06/25 07:57 04/06/25 07:57 04/06/25 07:57 04/06/25 07:57
*Critical Care Note
Total Time (30-74mins, 75-104mins- exclusive of procedures): Not Applicable
Update Note
Update Note:
Patient presents to the Emergency Department with ____abdominal pain
Number and Complexity of Problems Addressed at the Encounter
� Chronic conditions affecting care:
� Acute Exacerbation and/or Progression of Chronic Illness:
� Differential Diagnosis includes: But not limited to reflux, pancreatitis, bowel obstruction, gastric ulcer, etc. etc.
Amount and/or Complexity of Data to be Reviewed and Analyzed
� I performed an independent evaluation of and my interpretation is:
EKG:
CT:
Xrays:
Laboratory Studies: Elevated LFTs likely from fatty liver, lipase minimally elevated at 311, mild leukocytosis
Other:
� Review of other/old records reveals: Multiple admissions and ED visits for abdominal pain most recently admitted January 2025, initial lipase elevated at that time, MRI with MRCP did not show pancreatitis or stones in the bile
duct.
� Clinical information was obtained by an independent historian:
� Prescriptions/Medications Considered but not given:
� Further testing considered but not performed:
Risk of Complications and/or Morbidity or Mortality of Patient Management
� Social determinants of health affecting care:
� Discussion with other providers (PCP, Hospitalists, Consultants, etc):
� Escalation of care including admission/observation vs risk of discharge considered: 7:19 AM prolonged observation here, status post meds patient feels much better. I reviewed prior imaging and she has not been found to have
retained stone, etc. etc. Abdomen now soft and nontender. Patient would like to go home and follow-up with GI doctors which is reasonable. Discussed with her importance of this follow-up and reasons to return to the ER.
ED Attending Note
-
Portions of this chart may have been created with voice recognition software.� Occasional wrong word or��sound alike� substitutions may have occurred due to the inherent limitations of voice recognition software.
Discharge Plan
Departure
Patient Disposition: Home (Routine Discharge)
Date of Disposition: 04/06/25
Time of Disposition: 07:18
Patient with high blood pressure during this ER visit?: Yes
Condition: Good
Discharge Problem:
Abdominal pain
Instructions: Abdominal Pain, BLOOD PRESSURE
Prescriptions:
No Action
fluoxetine 40 mg Capsule
40 mg PO HS
alprazolam 1 mg Tablet
1 mg PO DAILYPRN PRN (Reason: anxiety)
alprazolam 1 mg tablet
2 mg PO HS
dicyclomine 20 mg Tablet
20 mg PO TIDPRN PRN (Reason: abd cramping)
fluoxetine 10 mg Capsule
10 mg PO HSPRN PRN (Reason: anxiety)
ursodiol 500 mg Tablet
1,000 mg PO DAILY
ursodiol 500 mg Tablet
500 mg PO HS
pantoprazole 40 mg tablet,delayed release (DR/EC)
40 mg PO DAILY Qty: 30 0RF
simethicone 80 mg Tablet,Chewable
80 mg PO DAILYPRN PRN (Reason: gas pains)
ondansetron 4 mg Tablet,Disintegrating
4 mg PO Q6H PRN (Reason: nausea,vomiting)
oxycodone 5 mg Tablet
5 mg PO Q6H PRN (Reason: pain)
Referrals:
Nikole Langston, DO [Family Provider] -
Activity Restrictions/Additional Instructions:
PLEASE FOLLOW-UP WITH YOUR GI DOCTORS PROMPTLY. IF YOU DEVELOP RECURRENT NEW OR WORSENING PAIN, FEVER, VOMITING, CHEST PAIN, SHORTNESS OF BREATH, OR OTHER WORRISOME SIGNS, PLEASE RETURN TO THE ER IMMEDIATELY!
Interventions
Interventions:
*Risk Screen - Suicide Last Done: 04/06/25 00:01
*General Assessment Last Done: 04/06/25 04:03
*Neglect/Abuse Screening Last Done: 04/06/25 00:01
*ED- Fall Risk Assessment Last Done: 04/06/25 04:03
*ED COVID-19 Vaccine History Last Done: 04/06/25 04:03
*Nursing Disposition Last Done: 04/06/25 07:57
[facility] Assessment Last Done: 04/06/25 04:03
Discharge Date and Time
Discharge Date/Time: 04/06/25 07:58
Print Language: [place]
[2025-04-06] MEDS: NSS 500 IV (05:10)
[2025-04-06] MEDS: TORADOL 15 MG IV (05:11)
[2025-04-06] MEDS: ZOFRAN 4 MG IV (05:11)
[2025-04-06] MEDS: DILAUDID 1 MG IV (06:15)
[2025-04-06 06:19] VITALS: BP 126/84
[2025-04-06 07:05] LABS: Urine Albumin 1+ (Neg - Trace); Urine Bilirubin Negative (Negative); Urine Character Clear (Clear); Urine Color Yellow; Urine Glucose Negative (Negative); Urine Ketone Negative (Negative); Urine Leukocyte Negative (Negative); Urine Nitrite Negative (Negative); Urine Occult Blood Negative (Negative); Urine Urobilinogen Negative (Neg - 1+)
[2025-04-06 07:18] LABS: Urine Red Blood Cell 0-2 /HPF (0-2); Urine Squamous Cell 0-2 /LPF (Few); Urine White Cell 0-2 /HPF (0-5)
[2025-04-06 07:57] VITALS: BP 104/54
== END 2025-04-06 07:58 | disposition home or self-care (01) ==
LOC: EMR 23:52
PROVIDERS: EMERGENCY PHYSICIAN Emergency Medicine; FAMILY PHYSICIAN Family Medicine
DX: R10.9 Unspecified abdominal pain (principal); K21.9 Gastro-esophageal reflux disease without esophagitis; F17.290 Nicotine dependence, other tobacco product, uncomplicated; Z90.49 Acquired absence of other specified parts of digestive tract
CPT/HCPCS: 99283; 96374; 96375; 80053; 81003; 81015; 83690; 84703; 85025